=== PATIENT | female | born 1940 | race Caucasian/White ===

== ENCOUNTER 2020-10-25 13:20 | Outpatient (REF) | payer MEDICARE, SELFPAY | END 2020-10-25 13:21 | disposition home or self-care (01) | LOC: HO.HOSX 13:20 | PROVIDERS: Visit Provider Orthopaedic Surgery | DX: Z13.89 Encounter for screening for other disorder (principal) ==

== ENCOUNTER → 2021-01-07 09:05 | Outpatient (BNVA) | payer MEDICARE, SELFPAY | PROVIDERS: PCP Internal Medicine; Visit Provider Surgery | DX: C50.911 Malignant neoplasm of unspecified site of right female breast (principal) | CPT/HCPCS: 99212 ==

== ENCOUNTER → 2021-02-20 08:35 | Outpatient (BNVA) | payer MEDICARE, SELFPAY | PROVIDERS: Visit Provider Orthopaedic Surgery | DX: M17.0 Bilateral primary osteoarthritis of knee (principal) | CPT/HCPCS: 20610; 99212; J1100 ==

== ENCOUNTER 2021-05-01 13:22 | Outpatient (REF) | payer MEDICARE, SELFPAY ==
--- NOTE | ~2021-05-01 | MM_ITS ---
EXAMINATION: MM DIAGNOSTIC DIGITAL BREAST TOMOSYNTHESIS, BILATERAL CLINICAL INFORMATION: Right lumpectomy for invasive ductal cancer 04/15/2018. Original biopsy and workup performed at outside facility. Due for yearly. COMPARISON: Mammography: 05/02/2020, 04/25/2019, right breast localization 04/15/2018. TECHNIQUE: Digital breast tomosynthesis is performed in both the craniocaudal and mediolateral oblique views along with computer-aided detection (CAD). Synthesized 2D images are generated from the tomosynthesis. Additional views are provided: Right MLO, magnification right CC, magnification right ML x2. FINDINGS: There are scattered areas of fibroglandular density (ACR BI-RADS breast composition Category b). Breast tissue composition borders on heterogeneously dense. Mild motion artifact right CC view. Parenchyma unremarkable on additional magnification view. Post therapy changes right breast with mild reduced breast size and scarring are again noted. There are stable fine calcifications central right breast as well as coarse and vascular calcifications. The bilateral axilla are unremarkable. The left breast has subtle focal asymmetric density mid 8:00 position approximately 7 cm from nipple, not appreciated at time of imaging. Patient will be recalled for additional evaluation. The remainder of the left breast is stable with similar appearing parenchyma and stable fine calcifications, coarse and vascular calcifications as before. Preliminary results provided to patient at time of visit by the technologist. MM/MM tomosynthesis diagnostic BI IMPRESSION: 1. Left: Subtle focal asymmetric density mid o'clock position approximately 7 cm from nipple. 2. Right: Stable post therapy changes. ASSESSMENT: BI-RADS 0: Incomplete - Need Additional Imaging Evaluation RECOMMENDATION: 1. Additional views left breast (3-D spot CC, 3-D spot LM). Include repeat right CC. 2. Targeted ultrasound left breast as warranted after review of the additional images. This patient's information was entered into a reminder system with a target due date for their next mammogram.
== END 2021-05-01 13:23 | disposition home or self-care (01) ==
LOC: HO.MAMMO 13:22
PROVIDERS: Absent Provider Surgery; PCP Internal Medicine; Visit Provider Internal Medicine Medical Oncology
DX: Z85.3 Personal history of malignant neoplasm of breast (principal)
CPT/HCPCS: 77062; 77066

== ENCOUNTER → 2021-05-08 08:07 | Outpatient (BNV) | payer MEDICARE, SELFPAY | PROVIDERS: PCP Internal Medicine; Visit Provider Internal Medicine Medical Oncology | DX: C50.911 Malignant neoplasm of unspecified site of right female breast (principal) | CPT/HCPCS: 99212; 99213; 99214 ==

== ENCOUNTER 2021-05-08 09:05 | Outpatient (REF) | payer MEDICARE, SELFPAY ==
--- NOTE | ~2021-05-08 | US_ITS ---
EXAMINATION: US DIAGNOSTIC ULTRASOUND BREAST, LEFT CLINICAL INFORMATION: Recall from recent bilateral diagnostic mammography 05/01/2021. Subtle asymmetric density lower inner left breast and motion artifact on right CC. Prior history right lumpectomy for breast cancer 2018. COMPARISON: Mammography 05/01/2021, 05/02/2020. TECHNIQUE: Digital breast tomosynthesis is performed. 2D images are generated from the tomosynthesis. The following views are obtained: Right CC (technical recall). 3-D spot left CC and 3-D spot left LM. Ultrasound left breast is targeted to the lower inner quadrant using grayscale imaging and color Doppler without and with harmonics. FINDINGS: Mammography: There are scattered areas of fibroglandular density (ACR BI-RADS breast composition Category b). Additional right CC view shows no additional findings. Additional left CC and LM spot views confirm small focal asymmetric density lower inner breast mid depth approximately 6 x 4 mm with ill-defined margins. This represents new finding from prior mammography 2019. Ultrasound left breast demonstrates subtle inhomogeneous hypoechoic lesion 8:00 position 5 cm from nipple measuring approximately 6 x 5 x 4 mm. No posterior sound characteristics. There is questionable associated color flow. No other cystic or solid mass or architectural abnormality. Results are discussed with the patient at time of visit. The finding on ultrasound left breast may correspond to the new focal asymmetric density on mammography. Since prone stereotactic biopsy would be difficult, attempt at ultrasound-guided biopsy was discussed. Patient is in agreement to proceed with ultrasound guided biopsy and reassess concordance with mammography following clip placement. US/US breast LT limited IMPRESSION: New small focal asymmetric density lower inner left breast mid depth with ill-defined margins. Possible ultrasound correlate. ASSESSMENT: BI-RADS 4: Suspicious RECOMMENDATION: Ultrasound-guided core biopsy left breast. Assess for mammographic concordance after clip placement at time of visit.
== END 2021-05-08 09:06 | disposition home or self-care (01) ==
LOC: HO.MAMMO 09:05
PROVIDERS: Visit Provider Surgery
DX: R92.8 Other abnormal and inconclusive findings on diagnostic imaging of breast (principal)
CPT/HCPCS: 76642

== ENCOUNTER 2021-05-09 09:58 | Outpatient (REF) | payer MEDICARE, SELFPAY ==
--- NOTE | ~2021-05-09 | MM_ITS ---
EXAMINATION: ULTRASOUND GUIDED CORE BIOPSY BREAST, LEFT POST PROCEDURE DIGITAL MAMMOGRAM, LEFT CLINICAL INFORMATION: New small focal asymmetric density lower inner left breast mid depth with possible ultrasound correlate. Prior history contralateral right breast invasive ductal cancer status post lumpectomy 2017. COMPARISON: Mammography 05/01/2021, 05/02/2020, targeted ultrasound 05/08/2021. FINDINGS: Proper informed consent is obtained from the patient after discussion of the procedure, potential risks and complications, and alternatives. Patient was given an opportunity for questions. The patient appeared to understand. The patient consented to the procedure and signed the consent form. GUIDANCE: Ultrasound-guided; aseptic technique. LESION: Inhomogeneous hypoechoic lesion 8:00 position left breast under 1 cm. No posterior shadowing or acoustic enhancement. APPROACH: Mediolateral. ANESTHESIA: 8 mL 1% lidocaine. DERMATOTOMY: Single skin álvaro dermatotomy performed. NEEDLE: 14-gauge Achieve core biopsy device with 13.5-gauge co-axial guide needle. CORES: 5. CLIP: HydroMARK; shape: butterfly. POST PROCEDURE UNILATERAL DIGITAL MAMMOGRAM: The post biopsy mammogram is performed in separate room using separate digital mammography equipment from the biopsy procedure. CC and ML views are obtained. There are scattered areas of fibroglandular density (breast composition category: b). The clip marker resides in the expected vicinity of the recent mammographic finding. The mammographic lesion is not seen with certainty due to background opacities from the anesthesia and tissue sampling. The patient tolerated the procedure well. No immediate complications. Home instructions reviewed with the patient. Final pathology results are pending. MM/MM diagnostic mammo unilat LT IMPRESSION: 1. Status post ultrasound-guided core biopsy left breast. 2. Clip placed: Ultraclip; shape: butterfly. 3. Pathology pending. An addendum report will be issued.
== END 2021-05-09 09:59 | disposition home or self-care (01) ==
LOC: HO.MAMMO 09:58
PROVIDERS: Visit Provider Surgery
DX: C50.312 Malignant neoplasm of lower-inner quadrant of left female breast (principal); Z17.0 Estrogen receptor positive status [ER+]
CPT/HCPCS: 19083; 77065; 88305; 88341; 88342; 88360

== ENCOUNTER 2021-06-04 07:51 | Inpatient (IN) | payer MEDICARE, SELFPAY ==
[2021-05-28 14:13] VITALS: BMI 32.9
--- NOTE | 2021-06-02 13:53 | PM.EVENT ---
Event Note Date of Service: 05/14/21 Event Note: I reviewed the pathology report with the patient by telephone and the patient expressed understanding.? She expressed her wish to undergo a bilateral mastectomy should the pathology be positive for breast cancer.? I offered to have her come to the office to discuss the options further but she declined and is very certain of how she wishes to proceed.? We discussed the surgery further including the risks, alternatives and benefits in detail and she gives her consent for the left modified radical mastectomy and right simple mastectomy.? She will be scheduled as a short stay admit.?
--- NOTE | 2021-06-03 11:53 | P.CONAN_ITS ---
Documented by User: Jaimie Golden NP 06/03/21 11:56 HPI - Anesthesia Eval Consult details Narrative: 81yo F for Left Modified Radical Mastectomy & Right Simple Mastectomy *Multiple Med Allergies* PMFSH Active Problems Active Problems: All Active Problems (Updated 05/28/21 @ 14:13 by Doreen Simmons) Hip strain (Acute) Invasive ductal carcinoma of right breast (Acute) Abnormal mammogram (Acute) Invasive ductal carcinoma of breast, female (Acute 05/13/21) Past Medical History Medical History Breast cancer COVID-19 vaccine series completed Depression GERD (gastroesophageal reflux disease) HX: breast cancer Hypothyroid Vertigo Family History Family History Father No problems noted. Mother No problems noted. Surgical History Surgical History H/O colonoscopy History of biopsy History of laparoscopic cholecystectomy History of lumpectomy of right breast (03/2018) History of surgery History of tonsillectomy and adenoidectomy History of tooth extraction Social History Social History Are you a primary day care worker to a significant other at home: No Do you presently have visiting nurse or other home services: No Alcohol intake: never Patient Tobacco Use Status: Former Tobacco user Quit Date: 1980 Tobacco use type: Cigarette Use of substances other than those prescribed or required for medical reasons: No Have you been hit, kicked, punched, or otherwise hurt by someone within the past year? If so, by whom?: No Are you DNR?: No Advance Directives: No Advance Directives Information Provided: Yes (does not have HCP) Advance Directives on File: No Recently lost weight without trying: No Eating poorly because of decreased appetite: No Nutrition Risks: Surgical patient >75years Poor oral hygiene: No (upper & lower full denture) Current occupational status: retired Gender identity: female Meds Allergies Allergy/AdvReac Type Severity Reaction Status Date / Time Iodinated Contrast Media Allergy Intermediate itching Verified 02/20/21 08:44 [IV CONTRAST] isopropyl alcohol Allergy Intermediate RASH/HIVES Verified 02/20/21 08:44 [ISOPROPYL ALCOHOL] latex [LATEX] Allergy Intermediate HIVES,RASH, Verified 02/20/21 08:44 ITCHY nitrofurantoin Allergy Intermediate RASH Verified 02/20/21 08:44 [From MACRODANTIN] Penicillins [PENICILLINS] Allergy Intermediate HIVES Verified 02/20/21 08:44 phenazopyridine Allergy Intermediate hives Verified 02/20/21 08:44 [From PYRIDIUM] vancomycin Allergy Itching Verified 06/04/21 09:52 ethanol Allergy Intermediate rash Uncoded 02/20/21 08:44 sulfa drugs Allergy Intermediate rash Uncoded 02/20/21 08:44 Home Medications Medication Instructions Recorded Confirmed Last Taken Type ascorbate calcium (vitamin C) 500 500 mg PO DAILY 10/25/20 05/28/21 Unknown History mg tablet levothyroxine 88 mcg tablet 88 mcg PO DAILY 10/25/20 05/28/21 Unknown History meclizine 25 mg tablet 25 mg PO TID PRN 10/25/20 05/28/21 Unknown History mecobalamin (vitamin B12) 5,000 5,000 mcg PO DAILY 10/25/20 05/28/21 Unknown History mcg disintegrating tablet omeprazole 20 mg capsule,delayed 20 mg PO DAILY 10/25/20 05/28/21 Unknown History release sertraline 25 mg tablet 25 mg PO DAILY 10/25/20 05/28/21 Unknown History Exam Exam Date and Time: June 03, 2021 1153 Height,Weight and Vital Signs: Height 5 ft 3 in Weight 84.4 kg Pertinent Lab Results Pertinent Lab Results: Laboratory Tests 05/08/21 05/08/21 08:53 08:53 WBC 5.9 Hgb 13.8 Hct 41.5 Plt Count 229 Sodium 137 Potassium 4.4 Chloride 104 Carbon Dioxide 23 BUN 20 H Creatinine 0.96 Narrative Narrative: ECHO 2018 EF 60-65% Grade 1 DD Moderate mitral annular calcification RV systolic pressue is normal No pericardial effusion Assessment and Plan Assessment Anesthesia Assessment: Chart Reviewed Documented by User: Anne Varela MD 06/04/21 10:07 [facility] Past Medical History Medical History Breast cancer COVID-19 vaccine series completed Depression GERD (gastroesophageal reflux disease) HX: breast cancer Hypothyroid Vertigo Family History Family History Father No problems noted. Mother No problems noted. Surgical History Surgical History H/O colonoscopy History of biopsy History of laparoscopic cholecystectomy History of lumpectomy of right breast (03/2018) History of surgery History of tonsillectomy and adenoidectomy History of tooth extraction History of Problems with Anesthesia: No Social History Social History Are you a primary day care worker to a significant other at home: No Do you presently have visiting nurse or other home services: No Alcohol intake: never Patient Tobacco Use Status: Former Tobacco user Quit Date: 1980 Tobacco use type: Cigarette Use of substances other than those prescribed or required for medical reasons: No Have you been hit, kicked, punched, or otherwise hurt by someone within the past year? If so, by whom?: No Are you DNR?: No Advance Directives: No Advance Directives Information Provided: Yes (does not have HCP) Advance Directives on File: No Recently lost weight without trying: No Eating poorly because of decreased appetite: No Nutrition Risks: Surgical patient >75years Poor oral hygiene: No (upper & lower full denture) Current occupational status: retired Gender identity: female Meds Allergies Allergy/AdvReac Type Severity Reaction Status Date / Time Iodinated Contrast Media Allergy Intermediate itching Verified 02/20/21 08:44 [IV CONTRAST] isopropyl alcohol Allergy Intermediate RASH/HIVES Verified 02/20/21 08:44 [ISOPROPYL ALCOHOL] latex [LATEX] Allergy Intermediate HIVES,RASH, Verified 02/20/21 08:44 ITCHY nitrofurantoin Allergy Intermediate RASH Verified 02/20/21 08:44 [From MACRODANTIN] Penicillins [PENICILLINS] Allergy Intermediate HIVES Verified 02/20/21 08:44 phenazopyridine Allergy Intermediate hives Verified 02/20/21 08:44 [From PYRIDIUM] vancomycin Allergy Itching Verified 06/04/21 09:52 ethanol Allergy Intermediate rash Uncoded 02/20/21 08:44 sulfa drugs Allergy Intermediate rash Uncoded 02/20/21 08:44 Home Medications Medication Instructions Recorded Confirmed Last Taken Type ascorbate calcium (vitamin C) 500 500 mg PO DAILY 10/25/20 05/28/21 Unknown History mg tablet levothyroxine 88 mcg tablet 88 mcg PO DAILY 10/25/20 05/28/21 Unknown History meclizine 25 mg tablet 25 mg PO TID PRN 10/25/20 05/28/21 Unknown History mecobalamin (vitamin B12) 5,000 5,000 mcg PO DAILY 10/25/20 05/28/21 Unknown History mcg disintegrating tablet omeprazole 20 mg capsule,delayed 20 mg PO DAILY 10/25/20 05/28/21 Unknown History release sertraline 25 mg tablet 25 mg PO DAILY 10/25/20 05/28/21 Unknown History Exam Airway Mallampati Class: II TM Dist: >3cm Neck ROM: Full Denture: Upper and Lower Loose/Missing/Broken Teeth: Yes, Upper and Lower Heart: RRR Lungs: CTA Assessment and Plan Assessment Anesthesia Assessment: Anesthesia Plan Discussed Final Anesthetic Review History of Problems with Anesthesia: No NPO: Yes ASA Class: II Final Preanesthetic Review: Meds/Allgs Chart Reviewed, Consent Obtained/Reviewed and Anes Risks/Benef Reviewed Patient Risk: Low Procedure Risk: Low Anesthetic Plan Anesthetic Plan: GA Disposition: Standard PACU
[2021-06-04] VITALS (14 sets, daily range): BP systolic 119–178; BP diastolic 62–86; PULSE 78–105; RESP 16–19; TEMP 36.1–36.6; O2SAT 90–99
[2021-06-04 08:38] LABS: COVID-19 Test Negative (Negative)
[2021-06-04] MEDS: Lactated Ringers 1,000 ML 100 ML IVCONT (08:47)
--- NOTE | 2021-06-04 08:50 | PC.NURSE ---
called pharmacy to verify vancomycin dose prior to infusing.
[2021-06-04] MEDS: vancomycin HCL 1,500 MG in 0.9 % Sodium Chloride 500 ML 333.33 MG IV (09:08)
--- NOTE | 2021-06-04 09:45 | PC.NURSE ---
PATIENTS VANCOMYCIN WAS STARTED AT 0908AM AND AT 0943 STARTED TO HAVE SCALP ITCH. NO SOB OR RESP DISTRESS NO RASH NOTED TO CHEST, NO REDNESS, NO ITCHY THROAT, VANCOMYCIN WAS STOPPED AT 0943. MD HIGGINBOTHAM BY BEDSIDE. NO NEW ORDERS. REMAINS OFF.
--- NOTE | 2021-06-04 09:50 | PC.NURSE ---
ONCE THE VANCOMYCIN HAS STOPPED THE ITCHY SCALP HAS SUBSIDED. CORTEXT TO MD MARTINI.
--- NOTE | 2021-06-04 10:24 | MHC.SHP ---
Pre-Procedural Eval Section A Date of Service: 06/04/21 The patient is an INPATIENT: No Changes since office visit: Yes Patient answered all questions; No Cold of Flu in the past 2 weeks, No New Medical Problems and No Changes in Medication The History & Physical has been completed within 30 days and I have reviewed it.: Yes Section B Chief Complaint: Bilateral mastectomy Allergies: Allergies Allergy/AdvReac Type Severity Reaction Status Date / Time Iodinated Contrast Media Allergy Intermediate itching Verified 02/20/21 08:44 [IV CONTRAST] isopropyl alcohol Allergy Intermediate RASH/HIVES Verified 02/20/21 08:44 [ISOPROPYL ALCOHOL] latex [LATEX] Allergy Intermediate HIVES,RASH, Verified 02/20/21 08:44 ITCHY nitrofurantoin Allergy Intermediate RASH Verified 02/20/21 08:44 [From MACRODANTIN] Penicillins [PENICILLINS] Allergy Intermediate HIVES Verified 02/20/21 08:44 phenazopyridine Allergy Intermediate hives Verified 02/20/21 08:44 [From PYRIDIUM] vancomycin Allergy Itching Verified 06/04/21 09:52 ethanol Allergy Intermediate rash Uncoded 02/20/21 08:44 sulfa drugs Allergy Intermediate rash Uncoded 02/20/21 08:44 Plan Diagnosis/Plan: Unchanged I have reviewed the history and physical and performed a pertinent physical examination on my patient. No changes have occurred unless specified.
--- NOTE | 2021-06-04 14:30 | P.OP_ITS ---
Operative Note Operative Note Date of Service: 06/04/21 Narrative: Preoperative diagnosis: Left breast invasive ductal carcinoma, previous right breast invasive ductal carcinoma Postoperative diagnosis: Same Procedure: Left modified radical mastectomy, right simple mastectomy Surgeon: Javier Angel MD [employer] Dispatcher: Eveline Monson PA-C Anesthesia: General LMA Indications for procedure: 81-year-old female with a previous history of a right breast invasive ductal carcinoma now presenting with a newly diagnosed left breast invasive ductal carcinoma. Patient was presented with the option of lumpectomy with needle localization, sentinel node biopsy but has requested a bilateral mastectomy. She presents now for a left modified radical mastectomy and right simple mastectomy. She previously underwent a right breast lumpectomy with right sentinel node biopsy. Operative findings: No obvious tumor noted in either breast. No obvious enlarged lymph nodes in the left axilla. Specimen: Left breast and axillary node dissection, right breast Estimated blood loss: 50 mL Complications: None Procedure details: Patient was brought to the OR and placed in a supine position. After administering general anesthesia the patient's bilateral breasts were prepped with ChloraPrep and draped in a sterile fashion. A surgical time-out was called the consent confirmed. Patient had started receiving vancomycin but developed an allergic reaction therefore this was sto pped during the mid infusion. No additional antibiotics were provided. This was discussed with the patient prior to surgery. Venodyne boots were in place. Local anesthesia consisting of 0.25 % Sensorcaine with epinephrine was infiltrated in the left breast. An elliptical incision was then created starting from the medial breast at the lateral surface of the sternum inguinal Lyn towards the axilla. Because of extensive redundant skin incision was continued further lateral attempt to resect some of the redundant skin. Incision was carried down into the subcutaneous tissue. Beginning in the superior flap electrocautery was used to dissect the superior skin flap to the bottom edge of the clavicle. Dissection was continued down to chest wall. The inferior flap was then cut created again using electrocautery down to the inferior mammary crease. Dissection was continued down to chest wall at this point as well. Dissection was then continued from medial to lateral off the chest wall using electrocautery. Hemostasis was assured using electrocautery and free ties of 3-0 Polysorb. Dissection was continued laterally towards the axilla. The lateral edge of the pectoralis major muscle was then identified. Dissection was continued around pectoralis major including the terrence tissue between the pectoralis major and pectoralis minor. Draws minor was also duct dissected free in the lateral surface. Dissection was continued laterally to identify the latissimus Dorsi muscle. Dissection was continued superiorly in both the pectoralis major and latissimus Dorsi muscles to reveal the inferior margin of the axillary vein. Portion of the lymphatic containing tissue below the axillary vein was left in place. Dissection was continued down just inferior to the axillary vein. Dissection of the long thoracic and thoracodorsal nerves were then performed. Dissection was continued below the pectoralis minor to retrieve the level 2 nodes as well as the level 1 nodes. The specimen was then continued inferiorly in the breast removed. Marking stitches were placed to identify the axilla. Specimen was sent to pathology for further examination. Hemostasis was again assured using electrocautery and free ties of 3-0 Polysorb suture. Attention was then directed to the right breast where again a elliptical incision was then created. Incision was carried down through the subcutaneous tissue. Superior flap a superior flap was then created using electrocautery up to the inferior edge of the clavicle. Inferior flap was then created similar fashion down to the inframammary crease. Dissection was then continued down to the pectoralis muscle. Beginning superiorly and medially the breast was dissected off the chest wall using electrocautery. Hemostasis was assured all times using electrocautery and free ties of 3-0 Polysorb suture. Dissection was continued laterally but not including the axilla. Was completely excised and sent to pathology for further examination. Marking stitches were applied. Wounds were irrigated thoroughly and suctioned dry. A single Joseph-Jessica drain was placed in the inferior skin flap on the right side in 2 Joseph-Jessica drains placed in the left breast 1 the axilla and the 2nd at the inferior skin flap. These were your to skin using 3-0 nylon suture. This was connected to bulb suction. Wounds were again checked for hemostasis. Dermis was then reapproximated using interrupted 3-0 Polysorb sutures at both incisions. Skin was then closed using skin kavya. Sterile were then applied. A breast binder was then applied. The patient tolerated the procedure well. Sponge, instrument, needle counts reported as correct. The patient was transferred to PACU in stable condition.
[2021-06-04] MEDS: fentaNYL citrate/PF 100 MCG/2 ML VIAL 25 MCG IVPUSH ×2 (15:04→15:12)
[2021-06-04] MEDS: 0.9 % Sodium Chloride Flush 3 ML SYRINGE IVFLUSH (17:22)
[2021-06-04] MEDS: Dextrose 5 % and Lactated Ring 1,000 ML 100 ML IVCONT (17:23)
[2021-06-04] MEDS: oxyCODONE HCl Immed Release 5 MG TABLET PO (18:52)
[2021-06-04] MEDS: Heparin Sodium,Porcine 5,000 UNIT/ML VIAL 5000 UNIT SUBCUT (18:53)
[2021-06-04] MEDS: NaPROXEN 250 MG TABLET PO (20:34)
[2021-06-05] VITALS (7 sets, daily range): BP systolic 123–154; BP diastolic 56–82; PULSE 77–83; RESP 16–18; TEMP 36.2–37; O2SAT 93–97
[2021-06-05] MEDS: Dextrose 5 % and Lactated Ring 1,000 ML 100 ML IVCONT (03:46)
[2021-06-05] MEDS: Heparin Sodium,Porcine 5,000 UNIT/ML VIAL 5000 UNIT SUBCUT ×2 (05:26→16:11)
[2021-06-05] MEDS: Levothyroxine Sodium 88 MCG TABLET PO (05:29)
--- NOTE | 2021-06-05 07:48 | P.PNGS_ITS ---
Subjective Subjective Date of Service: 06/05/21 Interval history: Feels well this morning, denies pain but has tightness at incisions. OOB and ambulating. Tolerating diet. Physical Exam Vital Signs: Vital Signs: Last Vital Signs Temp 97.2 F 06/05/21 03:17 Pulse 78 06/05/21 03:17 Resp 16 06/05/21 03:17 BP 127/82 06/05/21 03:17 Pulse Ox 97 06/05/21 03:17 Body Mass Index 32.9 Const: General: comfortable, no acute distress and alert Orientation/consciousness: patient oriented x3 Chest: Other: dressing c/d/i, incisions with very mild tenderness, no L axillary tenderness, MONIUQE drains with serosanguineous output, high Skin: General skin exam: no rashes or lesions noted Neuro: General: patient oriented x3 Extrem: General: Yes no clubbing, cyanosis or edema Procedures Date of Service Date of Service: 06/05/21 Progress Note: A&P Assessment and plan (1) Invasive ductal carcinoma of breast, female: Status: Acute (2) S/P mastectomy, bilateral: Status: Acute Assessment and Plan: She is doing very well post op #1 s/p left modified radical mastectomy, right simple mastectomy. Dressings c/d/i, breast binder in place. MONIQUE drains with serosanguineous output. Doing well but would benefit from one more day inpatient. Continue MONIQUE drains- dr french education today. Labs in AM. Encouraged OOB/IS use. Likely home tomorrow if remains stable. Fall Risk Details Current Medications: Current Medications Generic Name Dose Route Start Last Admin Trade Name Freq PRN Reason Stop Dose Admin Heparin Sodium (Porcine) 5,000 unit 06/04/21 16:32 06/05/21 05:26 Heparin Sodium,Porcine 5,000 Unit/Ml Vial SUBCUT 5,000 unit Q12H SUJATA Administration Dextrose/Lactated Ringer's 1,000 mls @ 100 mls/hr 06/04/21 16:32 06/05/21 03:46 D5lr IVCONT 100 mls/hr .Q10H SUJATA Administration Acetaminophen 1,000 mg in 100 mls @ 400 mls/hr 06/04/21 16:32 Ofirmev IV Q6H PRN Pain, Severe (Pain Scale 7-10) Levothyroxine Sodium 88 mcg 06/05/21 06:30 06/05/21 05:29 Levothyroxine Sodium 88 Mcg Tablet PO 88 mcg DAILY@0630 SUJATA Administration Meclizine HCl 25 mg 06/04/21 16:32 Meclizine Hcl 25 Mg Tablet PO TID PRN vertigo Morphine Sulfate 2 mg 06/04/21 16:32 Morphine Sulfate 2 Mg/Ml Cartridge IVPUSH Q3H PRN Pain, Severe (Pain Scale 7-10) Protocol Naproxen 250 mg 06/04/21 21:00 06/04/21 20:34 Naproxen 250 Mg Tablet PO 250 mg BID SUJATA Administration Omeprazole 20 mg 06/05/21 09:00 Omeprazole 20 Mg Capsule.Dr PO DAILY [facility] Ondansetron HCl 4 mg 06/04/21 16:32 Ondansetron Hcl 4 Mg/2 Ml Vial IVPUSH Q8H PRN Nausea and Vomiting Oxycodone HCl 5 mg 06/04/21 16:32 06/04/21 18:52 Oxycodone Hcl Immed Release 5 Mg Tablet PO 5 mg Q6H PRN Administration Pain, Moderate (Pain Scale 4-6 Sertraline HCl 25 mg 06/05/21 09:00 Sertraline Hcl 25 Mg Tablet PO DAILY [facility] Sodium Chloride 3 ml 06/04/21 16:32 06/05/21 00:03 0.9 % Sodium Chloride Flush 3 Ml Syringe IVFLUSH Not Given QSHIFT [facility] Zolpidem Tartrate 5 mg 06/04/21 16:32 Zolpidem Tartrate 5 Mg Tablet PO BEDTIME PRN Insomnia Time Spent With Patient Time: Total time spent is greater than 50% in coordination of care (as docu mented) at patient's floor/unit and/or counseling patient: Time with patient: 15 - 24 minutes Quality Stroke Does the patient have a stroke diagnosis?: No VTE Prior VTE?: No VTE Risk Level:: Surgical - high VTE Device Contraindication: N/A - Device Ordered VTE Drug Contraindication: N/A - Med Ordered
--- NOTE | 2021-06-05 09:19 | HO.POSTANES ---
Post Anesthesia Evaluation Post Anesthesia Evaluation Vital Signs: Vital Signs Temp Pulse Resp BP Pulse Ox 06/05/21 08:00 98.4 F 82 17 136/68 97 06/05/21 07:59 98.4 F 82 17 136/68 97 06/05/21 03:17 97.2 F 78 16 127/82 97 06/04/21 23:48 97.6 F 95 16 119/64 95 Anesthesia: General Mental Status: Awake Pain Control: Satisfactory Nausea/Vomiting: None Hydration: Adequate Anesthesia-Related Issues: No Anes. Related Issues
[2021-06-05] MEDS: Sertraline HCL 25 MG TABLET PO (09:44)
[2021-06-05] MEDS: Omeprazole 20 MG CAPSULE.DR PO (09:45)
[2021-06-05] MEDS: NaPROXEN 250 MG TABLET PO ×2 (09:45→20:58)
--- NOTE | 2021-06-05 10:16 | PC.NURSE ---
Skin assessment completed today. Patient had a double mastectomy, surgical site is stapled, dressing C/D/I. No other skin issues noted. Patient is independent and ambulatory.
--- NOTE | 2021-06-05 15:20 | MHC.CM.PN ---
CM MET WITH PT WHO REPORTS SHE LIVES ALONE AND IS INDEPENDENT WITH ALL CARE AND MOBILITY. PT REPORTS SHE DOES NOT USE DME AND DOES NOT HAVE IN HOME OR COMMUNITY SERVICES. PT HAS A HCP ON FILE SHE CONFIRMS IS ACCURATE. PTS PCP IS PRESTON MITCHELL. IMM DELIVERED CURRENT DC PLAN IS HOME WITH NO SERVICES PTS SON WILL TRANSPORT
[2021-06-05] MEDS: 0.9 % Sodium Chloride Flush 3 ML SYRINGE IVFLUSH (16:12)
[2021-06-06] VITALS: BP 137/63; PULSE 83; RESP 16; TEMP 36.6; O2SAT 93
[2021-06-06] MEDS: 0.9 % Sodium Chloride Flush 3 ML SYRINGE IVFLUSH ×2 (00:12→07:41)
[2021-06-06 03:38] VITALS: BP 124/60; PULSE 76; RESP 18; TEMP 36.4; O2SAT 94
[2021-06-06] MEDS: Heparin Sodium,Porcine 5,000 UNIT/ML VIAL 5000 UNIT SUBCUT (05:39)
[2021-06-06] MEDS: Levothyroxine Sodium 88 MCG TABLET PO (05:39)
[2021-06-06 06:27] LABS: MANUAL DIFF FLAG NO
[2021-06-06 06:37] LABS: Basophils Absolute Auto 0.1 X10*3/uL (0.0-0.2); Basophils Percent Auto 0.9 % (0-2); Eosinophils Absolute Auto 0.2 X10*3/uL (0.0-0.4); Hematocrit 35.2 % (37-47); Hemoglobin 11.6 g/dl (12.0-16.0); Imm Gran Abs Auto 0.02 X10*3/uL (0.00-0.03); Imm Gran Pct Auto 0.4 % (0.0-0.4); Lymphocytes Percent Auto 34.9 % (20-40); Mean Corpuscular Hemoglobin 29.3 pg (27.0-33.0); Mean Corpuscular Volume 88.9 fL (80-98); Mean Platelet Volume 9.3 fL (9.4-12.3); Monocytes Absolute Auto 0.4 X10*3/uL (0.1-1.2); Monocytes Percent Auto 7.7 % (2-11); Neutrophils Percent Auto 53.1 % (45-73); Platelet Count 194 X10*3/uL (160-400); Red Blood Count 3.96 X10*6/uL (4.20-5.50); Red Cell Distribution Width 14.6 % (11.0-16.0); White Blood Count 5.6 X10*3/uL (4.8-10.8)
[2021-06-06] MEDS: Omeprazole 20 MG CAPSULE.DR PO (07:41)
[2021-06-06] MEDS: NaPROXEN 250 MG TABLET PO (07:41)
[2021-06-06] MEDS: Sertraline HCL 25 MG TABLET PO (07:41)
--- NOTE | 2021-06-06 07:59 | W.MHC.F2F ---
Service Date Service Date: 06/06/21 Encounter Date of encounter: 06/06/21 Reasons for Services Signs and symptoms assessed: Vital signs, chest incisions, Joseph-Jessica drains Reason for jail: wound care (Drain management) Reason for physical therapy: home safety and mobility Overseeing Care: Javier Angel Homebound: Leaving the home is medically contraindicated at this time without the asist of a device and/or another person due th the listed conditions above and below. Reason homebound: unsteady gait / fall risk, weakness related to hospital stay and unable to drive Certification: Based on the above findings, I certify that this patient is confined to the home and needs intermittent jail care, physical therapy and/or speech therapy, or continues to need occupational therapy. The patient is under my care, and I have initiated the establishment of the plan of care. The patient will be followed by a physician who will periodically review the plan of care.
[2021-06-06 08:00] VITALS: BP 140/80; PULSE 82; RESP 18; TEMP 36.4; O2SAT 96
--- NOTE | 2021-06-06 08:15 | PM.PNGS ---
Subjective Subjective Date of Service: 06/06/21 Interval history: Feels very well today. Denies any pain. OOB and ambulating without difficulty. Physical Exam Vital Signs: Vital Signs: Last Vital Signs Temp 97.5 F 06/06/21 03:38 Pulse 76 06/06/21 03:38 Resp 18 06/06/21 03:38 BP 124/60 06/06/21 03:38 Pulse Ox 94 06/06/21 03:38 Body Mass Index 32.9 Const: General: comfortable, no acute distress and alert Orientation/consciousness: patient oriented x3 Chest: Other: b/l mastectomy incisions clean, some ecchymosis of left axilla, nontender, no erythema or drainage, MONIQUE drains with serosanguineous drainage Skin: General skin exam: no rashes or lesions noted Neuro: General: patient oriented x3 Extrem: General: Yes no clubbing, cyanosis or edema Procedures Date of Service Date of Service: 06/06/21 Progress Note: A&P Assessment and plan (1) S/P mastectomy, bilateral: Status: Acute (2) Invasive ductal carcinoma of breast, female: Status: Acute Assessment and Plan: Post op #2 s/p left modified radical mastectomy, right simple mastectomy. Incision clean, breast binder in place. MONIQUE drains with serosanguineous output, high. Continues to do well post op, pain minimal and incisions clean. Ready for discharge to home. Will need to leave MONIQUE drains in place. Discharge to home today with VNA services. PAtient comfortable with plan. Fall Risk Details Current Medications: Current Medications Generic Name Dose Route Start Last Admin Trade Name Freq PRN Reason Stop Dose Admin Heparin Sodium (Porcine) 5,000 unit 06/04/21 16:32 06/06/21 05:39 Heparin Sodium,Porcine 5,000 Unit/Ml Vial SUBCUT 5,000 unit Q12H SUJATA Administration Acetaminophen 1,000 mg in 100 mls @ 400 mls/hr 06/04/21 16:32 06/05/21 10:58 Ofirmev IV Infused Q6H PRN Infusion Pain, Severe (Pain Scale 7-10) Levothyroxine Sodium 88 mcg 06/05/21 06:30 06/06/21 05:39 Levothyroxine Sodium 88 Mcg Tablet PO 88 mcg DAILY@0630 SUJATA Administration Meclizine HCl 25 mg 06/04/21 16:32 Meclizine Hcl 25 Mg Tablet PO TID PRN vertigo Morphine Sulfate 2 mg 06/04/21 16:32 Morphine Sulfate 2 Mg/Ml Cartridge IVPUSH Q3H PRN Pain, Severe (Pain Scale 7-10) Protocol Naproxen 250 mg 06/04/21 21:00 06/06/21 07:41 Naproxen 250 Mg Tablet PO 250 mg BID SUJATA Administration Omeprazole 20 mg 06/05/21 09:00 06/06/21 07:41 Omeprazole 20 Mg Capsule.Dr PO 20 mg DAILY SUJATA Administration Ondansetron HCl 4 mg 06/04/21 16:32 Ondansetron Hcl 4 Mg/2 Ml Vial IVPUSH Q8H PRN Nausea and Vomiting Oxycodone HCl 5 mg 06/04/21 16:32 06/04/21 18:52 Oxycodone Hcl Immed Release 5 Mg Tablet PO 5 mg Q6H PRN Administration Pain, Moderate (Pain Scale 4-6 Sertraline HCl 25 mg 06/05/21 09:00 06/06/21 07:41 Sertraline Hcl 25 Mg Tablet PO 25 mg DAILY SUJATA Administration Sodium Chloride 3 ml 06/04/21 16:32 06/06/21 07:41 0.9 % Sodium Chloride Flush 3 Ml Syringe IVFLUSH 3 ml QSHIFT SUJATA Administration Zolpidem Tartrate 5 mg 06/04/21 16:32 Zolpidem Tartrate 5 Mg Tablet PO BEDTIME PRN Insomnia Time Spent With Patient Time: Total time spent is greater than 50% in coordination of care (as documented) at patient's floor/unit and/or counseling patient: Time with patient: 25 - 35 minutes Quality Stroke Does the patient have a stroke diagnosis?: No VTE Prior VTE?: No VTE Risk Level:: Surgical - high VTE Device Contraindication: N/A - Device Ordered VTE Drug Contraindication: N/A - Med Ordered
--- NOTE | 2021-06-06 08:20 | MHC.CM.PN ---
PATIENT AWARE THAT SURGEON IS RECOMMENDING HOME WITH VNA SERVICES. [facility] REFERRAL PLACED PER REQUEST OF PATIENT. CASE MANAGEMENT FOLLOWING.
--- NOTE | 2021-06-06 08:33 | MHC.CM.PN ---
[facility] IS UNABLE TO VISIT PATIENT UNTIL WEDNESDAY. RN FEELS THIS IS ACCEPTABLE. PATIENT AWARE.
--- NOTE | 2021-06-09 13:53 | PM.DS ---
DS: Providers Provider Date of Service: 06/06/21 Date of admission: 06/04/21 07:51 Primary care physician: Chemo Matias MD DS: Diagnosis Discharge Diagnosis (1) S/P mastectomy, bilateral: Status: Acute (2) Invasive ductal carcinoma of breast, female: Status: Acute DS: Medications Discharge Medications Home Medications: Home Medications Medication Instructions Recorded Confirmed ascorbate calcium (vitamin C) 500 500 mg PO DAILY 10/25/20 05/28/21 mg tablet levothyroxine 88 mcg tablet 88 mcg PO DAILY 10/25/20 05/28/21 meclizine 25 mg tablet 25 mg PO TID PRN 10/25/20 05/28/21 mecobalamin (vitamin B12) 5,000 5,000 mcg PO DAILY 10/25/20 05/28/21 mcg disintegrating tablet omeprazole 20 mg capsule,delayed 20 mg PO DAILY 10/25/20 05/28/21 release sertraline 25 mg tablet 25 mg PO DAILY 10/25/20 05/28/21 Previous Rx's Medication Instructions Recorded meloxicam 7.5 mg tablet 7.5 mg PO DAILY 14 Days #14 tab 10/25/20 oxycodone 5 mg tablet 5 mg PO Q6H PRN #10 tab 06/06/21 DS: Summary Hospital Course Hospital Course: BRIEF HPI: 81-year-old female with a previous history of a right breast invasive ductal carcinoma now presenting with a newly diagnosed left breast invasive ductal carcinoma. Patient was presented with the option of lumpectomy with needle localization, sentinel node biopsy but has requested a bilateral mastectomy. She presents now for a left modified radical mastectomy and right simple mastectomy. She previously underwent a right breast lumpectomy with right sentinel node biopsy. HOSPITAL COURSE: On 06/04/21, left modified radical mastectomy, right simple mastectomy was performed by Dr. Angel without complication. The patient tolerated the procedure well and was admitted for observation following. The patient had an uncomplicated recovery course and did very well. On POD #1, she had minimal incisional pain. She was tolerating a solid diet and OOB without difficulty. Her dressings were c/d/i but MONIQUE drains had a large amount of serosanguineous drainage and were left in place. She continued to do well on POD #2. Her incisions we clean, dressings changed and MONIQUE drains were left in place for persistent moderate output. She felt ready for discharge to home. She was discharged to home on 06/06/21 in stable condition with VNA services and her MONIQUE drains in place. Status at Discharge Functional status at discharge: independent ambulation Overall status at discharge: patient is progressing back to baseline Time Spent with Patient Time attestation: Total time spent providing and/or coordinating discharge services: Discharge coordination time: Greater than 30 minutes Quality: Stroke Does the patient have a stroke diagnosis?: No Physical Exam Vital Signs: Vital Signs: Last Vital Signs Temp 97.5 F 06/06/21 08:00 Pulse 82 06/06/21 08:00 Resp 18 06/06/21 08:00 BP 140/80 H 06/06/21 08:00 Pulse Ox 96 06/06/21 08:00 Body Mass Index 32.9 Const: General: comfortable, no acute distress and alert Orientation/consciousness: patient oriented x3 Chest: Other: b/l mastectomy site incisions clean, MONIQUE drains in place Resp: Effort & Inspection: normal respiratory effort Cardio: Rate: regular rate Skin: General skin exam: no rashes or lesions noted Neuro: General: patient oriented x3 DS: Data Data Completed and Pending Pending studies at discharge: Pending at discharge 06/04/21 13:01 Surgical [PTH] Routine Discharge Plan Discharge Patient Disposition: Home Health Service Discharge Diagnosis: invasive ductal carcinoma left breast Referrals: Krysten YAO [Outside] - 1 Week Javier Angel MD [Physician] - 1 Week Chemo Matias MD [Primary Care Provider] - 1 Week Discharge Medications: New oxycodone 5 mg tablet 5 mg PO Q6H PRN (Reason: pain) Qty: 10 RF: 0 Continued omeprazole 20 mg capsule,delayed release(DR/EC) 20 mg PO DAILY RF: 0 meclizine 25 mg tablet 25 mg PO TID PRN (Reason: vertigo) RF: 0 levothyroxine 88 mcg tablet 88 mcg PO DAILY RF: 0 sertraline 25 mg tablet 25 mg PO DAILY RF: 0 ascorbate calcium (vitamin C) 500 mg tablet 500 mg PO DAILY RF: 0 mecobalamin (vitamin B12) 5,000 mcg tablet,disintegrating 5,000 mcg PO DAILY RF: 0 meloxicam 7.5 mg tablet 7.5 mg PO DAILY 14 Days Qty: 14 RF: 0 Discharge Orders: Discharge Order (Routine); Ordered 06/06/21 Ordered By: Javier Angel Diet: advance to usual diet Activity on Discharge: No heavy lifting Stand Alone Forms: Patient Portal Discharge page Care Plan Goals: Gradual return to activities following recovery period, eventual MONIQUE drain removal Health Concerns: Invasive ductal carcinoma left breast s/p left modified radical and right simple mastectomy Plan of Treatment: Discharge to home with vna services, f/u in office, MONIQUE drain care Assessment: 81 year old female admitted s/p s/p left modified radical and right simple mastectomy. She is doing very well post op and is stable for discharge to home with VNA services. Discharge Date/Time: 06/06/21 10:38
== END 2021-06-06 10:38 | disposition home health service (06) | DRG 581 ==
LOC: HO.SSSA 07:54 → HO.S3 15:39
PROVIDERS: Physician Assistant Surgical; Admitting Provider Surgery; PCP Internal Medicine; Visit Provider Surgery
PROC: 07B60ZX Excision of Left Axillary Lymphatic, Open Approach, Diagnostic (ICD-10-PCS; CPT 19307; principal; 2021-06-04 09:40)
DX: D05.12 Intraductal carcinoma in situ of left breast (principal); D05.11 Intraductal carcinoma in situ of right breast; K21.9 Gastro-esophageal reflux disease without esophagitis; Z20.822 Contact with and (suspected) exposure to COVID-19; Z87.891 Personal history of nicotine dependence; Z88.0 Allergy status to penicillin; Z88.2 Allergy status to sulfonamides; Z79.1 Long term (current) use of non-steroidal anti-inflammatories (NSAID); Z79.890 Hormone replacement therapy; Z79.899 Other long term (current) drug therapy
CPT/HCPCS: 36415; 85025; 87635; 88307; 88309; 88360; J0131; J1100; J2250; J2370; J2405; J3010; J3370

== ENCOUNTER → 2021-06-10 11:27 | Outpatient (BNVA) | payer MEDICARE, SELFPAY | PROVIDERS: PCP Internal Medicine; Referring Provider Internal Medicine; Visit Provider Surgery | DX: Z48.3 Aftercare following surgery for neoplasm (principal); C50.919 Malignant neoplasm of unspecified site of unspecified female breast; Z90.13 Acquired absence of bilateral breasts and nipples | CPT/HCPCS: 99212 ==

== ENCOUNTER → 2021-06-17 09:31 | Outpatient (BNVA) | payer MEDICARE, SELFPAY | PROVIDERS: PCP Internal Medicine; Referring Provider Internal Medicine; Visit Provider Surgery | DX: Z48.89 Encounter for other specified surgical aftercare (principal); Z90.13 Acquired absence of bilateral breasts and nipples; Z85.3 Personal history of malignant neoplasm of breast | CPT/HCPCS: 99212 ==

== ENCOUNTER → 2021-06-25 14:36 | Outpatient (BNVA) | payer MEDICARE, SELFPAY | PROVIDERS: PCP Internal Medicine; Referring Provider Internal Medicine; Visit Provider Surgery | DX: C50.911 Malignant neoplasm of unspecified site of right female breast (principal); L76.34 Postprocedural seroma of skin and subcutaneous tissue following other procedure | CPT/HCPCS: 99212 ==

== ENCOUNTER → 2021-07-01 09:24 | Outpatient (BNVA) | payer MEDICARE, SELFPAY | PROVIDERS: PCP Internal Medicine; Visit Provider Surgery | DX: L76.34 Postprocedural seroma of skin and subcutaneous tissue following other procedure (principal) | CPT/HCPCS: 99212 ==

== ENCOUNTER → 2021-07-08 09:26 | Outpatient (BNVA) | payer MEDICARE, SELFPAY | PROVIDERS: PCP Internal Medicine; Referring Provider Internal Medicine; Visit Provider Surgery | DX: L76.34 Postprocedural seroma of skin and subcutaneous tissue following other procedure (principal) | CPT/HCPCS: 99212 ==

== ENCOUNTER → 2021-07-11 10:03 | Outpatient (BNVA) | payer MEDICARE, SELFPAY | PROVIDERS: PCP Internal Medicine; Visit Provider Surgery | DX: L76.34 Postprocedural seroma of skin and subcutaneous tissue following other procedure (principal) | CPT/HCPCS: 10160; 99212 ==

== ENCOUNTER → 2021-07-15 08:53 | Outpatient (BNVA) | payer MEDICARE, SELFPAY | PROVIDERS: PCP Internal Medicine; Referring Provider Internal Medicine; Visit Provider Surgery | DX: L76.34 Postprocedural seroma of skin and subcutaneous tissue following other procedure (principal); C50.911 Malignant neoplasm of unspecified site of right female breast; Z90.13 Acquired absence of bilateral breasts and nipples | CPT/HCPCS: 10160; 99212 ==

== ENCOUNTER → 2021-07-22 08:48 | Outpatient (BNVA) | payer MEDICARE, SELFPAY | PROVIDERS: PCP Internal Medicine; Referring Provider Internal Medicine; Visit Provider Surgery | DX: C50.919 Malignant neoplasm of unspecified site of unspecified female breast (principal) | CPT/HCPCS: 99212 ==

== ENCOUNTER → 2021-08-22 09:02 | Outpatient (BNVA) | payer MEDICARE, SELFPAY | PROVIDERS: PCP Internal Medicine; Referring Provider Internal Medicine; Visit Provider Surgery | DX: C50.911 Malignant neoplasm of unspecified site of right female breast (principal) | CPT/HCPCS: 99212 ==

== ENCOUNTER → 2021-12-30 09:02 | Outpatient (BNVA) | payer MEDICARE, SELFPAY | PROVIDERS: Referring Provider Internal Medicine; Visit Provider Surgery | DX: C50.911 Malignant neoplasm of unspecified site of right female breast (principal) | CPT/HCPCS: 99212 ==

== ENCOUNTER → 2022-01-27 10:59 | Outpatient (BNVA) | payer MEDICARE, SELFPAY | PROVIDERS: PCP Internal Medicine; Referring Provider Internal Medicine; Visit Provider Physician Assistant | DX: R19.5 Other fecal abnormalities (principal) | CPT/HCPCS: 99202 ==

== ENCOUNTER 2022-01-30 09:24 | Outpatient (REF) | payer MEDICARE, SELFPAY ==
[2022-01-30 14:09] LABS: CDiff Gene PCR NEGATIVE (Negative)
== END 2022-01-30 09:25 | disposition home or self-care (01) ==
LOC: HO.WFDLNP 09:24
PROVIDERS: Visit Provider Physician Assistant
DX: R19.7 Diarrhea, unspecified (principal)
CPT/HCPCS: 87045; 87046; 87077; 87493

== ENCOUNTER → 2022-02-10 09:26 | Outpatient (BNVA) | payer MEDICARE, SELFPAY | PROVIDERS: PCP Internal Medicine; Visit Provider Physician Assistant | DX: Z13.89 Encounter for screening for other disorder (principal) | CPT/HCPCS: Q3014 ==

== ENCOUNTER → 2022-02-27 09:59 | Outpatient (BNVA) | payer MEDICARE, SELFPAY | PROVIDERS: PCP Internal Medicine; Visit Provider Orthopaedic Surgery | DX: M17.0 Bilateral primary osteoarthritis of knee (principal) | CPT/HCPCS: 20610; 99212; J1100 ==

== ENCOUNTER → 2022-03-17 10:30 | Outpatient (BNVA) | payer MEDICARE, SELFPAY | PROVIDERS: PCP Internal Medicine; Visit Provider Physician Assistant | DX: R19.5 Other fecal abnormalities (principal) | CPT/HCPCS: 99212 ==

== ENCOUNTER → 2022-04-23 09:44 | Outpatient (BNVA) | payer MEDICARE, SELFPAY | PROVIDERS: PCP Internal Medicine; Visit Provider Orthopaedic Surgery | DX: M17.0 Bilateral primary osteoarthritis of knee (principal) | CPT/HCPCS: 20610; 99212; J7323 ==

== ENCOUNTER → 2022-04-30 09:07 | Outpatient (BNVA) | payer MEDICARE, SELFPAY | PROVIDERS: PCP Internal Medicine; Visit Provider Orthopaedic Surgery | DX: M17.0 Bilateral primary osteoarthritis of knee (principal) | CPT/HCPCS: 20610; 99212; J7323 ==

== ENCOUNTER → 2022-05-07 09:10 | Outpatient (BNVA) | payer MEDICARE, SELFPAY | PROVIDERS: PCP Internal Medicine; Visit Provider Physician Assistant | DX: M17.0 Bilateral primary osteoarthritis of knee (principal) | CPT/HCPCS: 20610; 99212; J7323 ==

== ENCOUNTER → 2022-05-14 09:32 | Outpatient (BNVA) | payer MEDICARE, SELFPAY | PROVIDERS: PCP Internal Medicine; Visit Provider Physician Assistant | DX: M17.11 Unilateral primary osteoarthritis, right knee (principal) | CPT/HCPCS: 20610; J7323 ==

== ENCOUNTER → 2022-07-31 11:14 | Outpatient (BNVA) | payer MEDICARE, SELFPAY | PROVIDERS: PCP Internal Medicine; Visit Provider Surgery | DX: C50.911 Malignant neoplasm of unspecified site of right female breast (principal); C50.912 Malignant neoplasm of unspecified site of left female breast; Z90.13 Acquired absence of bilateral breasts and nipples | CPT/HCPCS: 99212 ==

== ENCOUNTER → 2022-09-18 09:38 | Outpatient (BNVA) | payer MEDICARE, SELFPAY | PROVIDERS: PCP Internal Medicine; Visit Provider Physician Assistant | DX: M17.0 Bilateral primary osteoarthritis of knee (principal); M25.561 Pain in right knee; M25.562 Pain in left knee | CPT/HCPCS: 20610; 99212; J1040 ==

== ENCOUNTER → 2022-11-06 09:41 | Outpatient (BNVA) | payer MEDICARE, SELFPAY | PROVIDERS: PCP Internal Medicine; Visit Provider Physician Assistant | DX: M17.0 Bilateral primary osteoarthritis of knee (principal) | CPT/HCPCS: 20610; J7323 ==

== ENCOUNTER → 2022-11-13 09:22 | Outpatient (BNVA) | payer MEDICARE, SELFPAY | PROVIDERS: PCP Internal Medicine; Visit Provider Physician Assistant | DX: M17.0 Bilateral primary osteoarthritis of knee (principal) | CPT/HCPCS: 20610; J7323 ==

== ENCOUNTER → 2022-11-20 10:49 | Outpatient (BNVA) | payer MEDICARE, SELFPAY | PROVIDERS: PCP Internal Medicine; Visit Provider Physician Assistant | DX: M17.0 Bilateral primary osteoarthritis of knee (principal) | CPT/HCPCS: 20610; J7323 ==

== ENCOUNTER 2023-01-29 07:57 | Outpatient (REF) | payer MEDICARE, SELFPAY ==
--- NOTE | ~2023-01-29 | XR_ITS ---
X-RAY RIGHT KNEE X-RAY LEFT KNEE X-RAY BILATERAL STANDING KNEES CLINICAL HISTORY: Pain. COMPARISON: Radiograph of the left knee 09/01/2019. TECHNIQUE: 1view of the right knee. 2 views of the left knee. 1 AP standing view of both knees. FINDINGS: No acute fractures. No subluxation. Moderate tricompartmental degenerative osteoarthritis in both knees with joint space narrowing, subcortical sclerosis and small marginal osteophytes. Small left-sided joint effusion. Scattered bilateral atherosclerotic disease. XR/XR knee LT 2V IMPRESSION: 1. No acute fractures or malalignment. 2. Moderate tricompartmental degenerative osteoarthritis. 3. Small left-sided joint effusion.
--- NOTE | ~2023-01-29 | XR_ITS ---
X-RAY RIGHT KNEE X-RAY LEFT KNEE X-RAY BILATERAL STANDING KNEES CLINICAL HISTORY: Pain. COMPARISON: Radiograph of the left knee 09/01/2019. TECHNIQUE: 1view of the right knee. 2 views of the left knee. 1 AP standing view of both knees. FINDINGS: No acute fractures. No subluxation. Moderate tricompartmental degenerative osteoarthritis in both knees with joint space narrowing, subcortical sclerosis and small marginal osteophytes. Small left-sided joint effusion. Scattered bilateral atherosclerotic disease. XR/XR knee standing BI IMPRESSION: 1. No acute fractures or malalignment. 2. Moderate tricompartmental degenerative osteoarthritis. 3. Small left-sided joint effusion.
--- NOTE | ~2023-01-29 | XR_ITS ---
X-RAY RIGHT KNEE X-RAY LEFT KNEE X-RAY BILATERAL STANDING KNEES CLINICAL HISTORY: Pain. COMPARISON: Radiograph of the left knee 09/01/2019. TECHNIQUE: 1view of the right knee. 2 views of the left knee. 1 AP standing view of both knees. FINDINGS: No acute fractures. No subluxation. Moderate tricompartmental degenerative osteoarthritis in both knees with joint space narrowing, subcortical sclerosis and small marginal osteophytes. Small left-sided joint effusion. Scattered bilateral atherosclerotic disease. XR/XR knee RT 2V IMPRESSION: 1. No acute fractures or malalignment. 2. Moderate tricompartmental degenerative osteoarthritis. 3. Small left-sided joint effusion.
== END 2023-01-29 07:58 | disposition home or self-care (01) ==
LOC: HO.HOSX 07:57
PROVIDERS: Visit Provider Physician Assistant
DX: M17.0 Bilateral primary osteoarthritis of knee (principal); C50.911 Malignant neoplasm of unspecified site of right female breast; Z79.899 Other long term (current) drug therapy
CPT/HCPCS: 20610; 73560; 73565; 99212; J1040

== ENCOUNTER 2023-05-06 13:35 | Outpatient (AMB) | payer MEDICARE, SELFPAY ==
[2023-05-06 13:43] VITALS: BMI 30.8
--- NOTE | 2023-05-06 13:43 | A.OFFVIS_ITS ---
Intake Vital Signs 05/06/23 13:43 Height 5 ft 3 in Weight 174 lb BMI 30.8 Intake Visit Reasons: OV- B/L Knees INJ 01/29/23 Intake Note: Ana is a 82 year old female who presents today for a follow up for her bilateral knee OA, last injection 01/29/23. Patient reports she would like to repeat the injections and would like to discuss repeating her gel injections. Allergies Iodinated Contrast Media [IV CONTRAST] Allergy (Intermediate, Verified 05/06/23 13:44) itching isopropyl alcohol [ISOPROPYL ALCOHOL] Allergy (Intermediate, Verified 05/06/23 13:44) RASH/HIVES latex [LATEX] Allergy (Intermediate, Verified 05/06/23 13:44) HIVES,RASH,ITCHY nitrofurantoin [From MACRODANTIN] Allergy (Intermediate, Verified 05/06/23 13:44) RASH Penicillins [PENICILLINS] Allergy (Intermediate, Verified 05/06/23 13:44) HIVES phenazopyridine [From PYRIDIUM] Allergy (Intermediate, Verified 05/06/23 13:44) hives vancomycin Allergy (Verified 05/06/23 13:44) Itching ethanol Allergy (Intermediate, Uncoded 01/29/23 08:52) rash sulfa drugs Allergy (Intermediate, Uncoded 01/29/23 08:52) rash HPI OV- B/L Knees INJ 01/29/23 HPI Details 83-year-old female who presents in the office today for a follow up of bilateral knee pain. The patient had her last bilateral cortisone knee injections on 01/29/2023. She would like to repeat injections in the office today. She would also like to discuss Gel injections. [facility] Medical History Breast cancer COVID-19 vaccine series completed Depression GERD (gastroesophageal reflux disease) HX: breast cancer Hypothyroid Vertigo Surgical History H/O colonoscopy History of biopsy History of laparoscopic cholecystectomy History of lumpectomy of right breast (03/2018) History of surgery History of tonsillectomy and adenoidectomy History of tooth extraction S/P mastectomy, bilateral Family History Father No problems noted. Mother No problems noted. Sister Cancer of kidney Uterine cancer Social History Household Members: None Housing: House Are you a primary client care specialist to a significant other at home: No Do you presently have visiting nurse or other home services: No Alcohol intake: never Patient Tobacco Use Status: Former Tobacco user Quit Date: 40 years ago Tobacco use type: Cigarette Years Smoked: 20 years service: No Current occupational status: retired Gender identity: Female Review of Systems Const All systems reviewed & are unremarkable except as noted in HPI and below Physical Exam Vital Signs: BMI result Body Mass Index 30.8 Extrem Other: Bilateral knees normal to inspection no ecchymosis, erythema or joint effusion. Full knee ROM. NVI. Office Procedures Joint Injection/Drain Joint Injection/Drain Primary Site: right knee Secondary Site: left knee Prep: site was prepped using aseptic technique, ethochloride spray was applied and injection warnings given Injected: 80 mg of, DepoMedrol, with 8 mL of (2% plain lido ) and in the joint Approach Used: anterolateral Procedure: The patient tolerated the procedure well, but had some pain with the injection and there was some relief with the local anesthesia Coding 46526 - Large joint Procedure code (CPT) selection complete Results Reviewed Results Reviewed: 05/06/23 13:44 Lidocaine HCl 2 % MPF [Xylocaine 2 % MPF] 5 ml .ROUTE .STK-MED ONE methylPREDNISolone acetate [DEPO-MedroL] 80 mg .ROUTE .STK-MED ONE Assessment & Plan Assessment & Plan (1) Osteoarthritis of knees, bilateral: Code(s): M17.0 - Bilateral primary osteoarthritis of knee Plan Ms. Salomon is a 83-year-old female who presents in the office today for a follow up of bilateral knee pain. The patient had her last bilateral cortisone knee injections on 01/29/2023. She would like to repeat injections in the office today. She would also like to discuss Gel injections. The patient was offered a cortisone injection in the bilateral knees with 80 mg of DepoMedrol. The patient was explained the risk, benefits, and alternatives to receiving this injection. After receiving consent for the injection, the patient had the procedure done while in office today. The patient tolerated the procedure well with no complications. The office will petition the insurance for Gel injections. Follow up will be after authorization for Gel injections have been obtained, or sooner if needed. Patient Instructions: Scribed for Gricelda Lyons PA-C by Teresa Leal biomedical scientist, on 05/06/2023 at 1:41 pm, EST. Your attestation Coding Level of Care Code Est Pt Level 3 (63897) Diagnoses Osteoarthritis of knees, bilateral M17.0 CPT Codes Coding - 53886 Large joint: 18466 - Large joint ([id number])
== END 2023-05-06 14:59 | disposition home or self-care (01) ==
PROVIDERS: PCP Internal Medicine; Visit Provider Physician Assistant
DX: M17.0 Bilateral primary osteoarthritis of knee (principal)
CPT/HCPCS: 20610; 99213

== ENCOUNTER → 2023-05-06 13:35 | Outpatient (BNVA) | payer MEDICARE, SELFPAY | PROVIDERS: PCP Internal Medicine; Visit Provider Physician Assistant | DX: M17.0 Bilateral primary osteoarthritis of knee (principal) | CPT/HCPCS: 20610; 99212; J1040 ==

== ENCOUNTER 2023-06-01 09:05 | Outpatient (AMB) | payer MEDICARE, SELFPAY ==
--- NOTE | 2023-06-01 09:26 | MHC.OFFVIS ---
Intake Vital Signs 06/01/23 09:27 Height 5 ft 3 in Weight 174 lb BMI 30.8 Intake Visit Reasons: OV - B/L knee euflexxa #1 Intake Note: Ana is a 83 year old female who presents today for her bilateral knee euflexxa gel injections #1. Allergies Iodinated Contrast Media [IV CONTRAST] Allergy (Intermediate, Verified 06/01/23 09:29) itching isopropyl alcohol [ISOPROPYL ALCOHOL] Allergy (Intermediate, Verified 06/01/23 09:29) RASH/HIVES latex [LATEX] Allergy (Intermediate, Verified 06/01/23 09:29) HIVES,RASH,ITCHY nitrofurantoin [From MACRODANTIN] Allergy (Intermediate, Verified 06/01/23 09:29) RASH Penicillins [PENICILLINS] Allergy (Intermediate, Verified 06/01/23 09:29) HIVES phenazopyridine [From PYRIDIUM] Allergy (Intermediate, Verified 06/01/23 09:29) hives vancomycin Allergy (Verified 06/01/23 09:29) Itching ethanol Allergy (Intermediate, Uncoded 06/01/23 09:29) rash sulfa drugs Allergy (Intermediate, Uncoded 06/01/23 09:29) rash HPI OV - B/L knee euflexxa #1 HPI Details 83-year-old female who presents in the office today for a follow up of bilateral knee pain. She presents for her 1st Euflexxa injection in a series of 3 in the bilateral knees. [facility] Medical History Breast cancer COVID-19 vaccine series completed Depression GERD (gastroesophageal reflux disease) HX: breast cancer Hypothyroid Vertigo Surgical History H/O colonoscopy History of biopsy History of laparoscopic cholecystectomy History of lumpectomy of right breast (03/2018) History of surgery History of tonsillectomy and adenoidectomy History of tooth extraction S/P mastectomy, bilateral Family History Father No problems noted. Mother No problems noted. Sister Cancer of kidney Uterine cancer Social History Household Members: None Housing: House Are you a primary health care sanitary technician to a significant other at home: No Do you presently have visiting nurse or other home services: No Alcohol intake: never Patient Tobacco Use Status: Former Tobacco user Quit Date: 40 years ago Tobacco use type: Cigarette Years Smoked: 20 years service: No Current occupational status: retired Gender identity: Female Review of Systems Const All systems reviewed & are unremarkable except as noted in HPI and below Physical Exam Vital Signs: BMI result Body Mass Index 30.8 Const General: cooperative, healthy appearing and no acute distress Resp Effort & Inspection: normal respiratory effort and able to speak in complete sentences Cardio Rate: regular rate Peripheral pulses: Peripheral pulses 2+ throughout GI Palpation (GI): Soft to palpation Skin Lesions: no lesions Rashes: no rashes Extrem Other: Bilateral knees normal to inspection no ecchymosis, erythema or joint effusion. Full knee ROM. NVI. Office Procedures Joint Injection/Drain Joint Injection/Drain Primary Site: right knee Secondary Site: left knee Prep: site was prepped using aseptic technique, ethochloride spray was applied and injection warnings given Injected: in the joint (Euflexxa #1) Approach Used: anterolateral Procedure: The patient tolerated the procedure well, but had some pain with the injection and there was some relief with the local anesthesia Coding 04225 - Large joint Procedure code (CPT) selection complete Results Reviewed Results Reviewed: 06/01/23 09:11 Hyaluronate Sodium [Euflexxa] 20 mg INTRAARTIC .[facility] Assessment & Plan Assessment & Plan (1) Osteoarthritis of knees, bilateral: Code(s): M17.0 - Bilateral primary osteoarthritis of knee Plan Ms. Salomon is a 83-year-old female who presents in the office today for a follow up of bilateral knee pain. She presents for her 1st Euflexxa injection in a series of 3 in the bilateral knees. The patient was injection with her 1st Euflexxa injection in the bilateral knees. The patient was explained the risk, benefits, and alternatives to receiving this injection. After receiving consent for the injection, the patient had the procedure done while in office today. The patient tolerated the procedure well with no complications. Follow up will be in 1 week for her 2nd Euflexxa injection, or sooner if needed. Patient Instructions: Scribed for Gricelda Lyons PA-C by emily Payan scribe, on 06/01/2023 at 9:07 am, EST. Coding Level of Care Code Procedure Only Diagnoses Osteoarthritis of knees, bilateral M17.0 CPT Codes Coding - 92317 Large joint: 84910 - Large joint ([id number])
[2023-06-01 09:27] VITALS: BMI 30.8
== END 2023-06-01 09:42 | disposition home or self-care (01) ==
PROVIDERS: PCP Internal Medicine; Visit Provider Physician Assistant
DX: M17.0 Bilateral primary osteoarthritis of knee (principal)
CPT/HCPCS: 20610

== ENCOUNTER → 2023-06-01 09:05 | Outpatient (BNVA) | payer MEDICARE, SELFPAY | PROVIDERS: PCP Internal Medicine; Visit Provider Physician Assistant | DX: M17.0 Bilateral primary osteoarthritis of knee (principal) | CPT/HCPCS: 20610; J7323 ==

== ENCOUNTER 2023-06-10 10:38 | Outpatient (AMB) | payer MEDICARE, SELFPAY ==
--- NOTE | 2023-06-10 10:51 | A.OFFVIS_ITS ---
Intake Intake Visit Reasons: OV - B/L knee euflexxa #2 Intake Note: Ana is a 83 year old female who presents today for her bilateral knee euflexxa gel injections #2. Patient reports that she had a episode where her knee gave out on her and her knee hasn't done that in a while. Allergies Iodinated Contrast Media [IV CONTRAST] Allergy (Intermediate, Verified 06/10/23 10:52) itching isopropyl alcohol [ISOPROPYL ALCOHOL] Allergy (Intermediate, Verified 06/10/23 10:52) RASH/HIVES latex [LATEX] Allergy (Intermediate, Verified 06/10/23 10:52) HIVES,RASH,ITCHY nitrofurantoin [From MACRODANTIN] Allergy (Intermediate, Verified 06/10/23 10:52) RASH Penicillins [PENICILLINS] Allergy (Intermediate, Verified 06/10/23 10:52) HIVES phenazopyridine [From PYRIDIUM] Allergy (Intermediate, Verified 06/10/23 10:52) hives vancomycin Allergy (Verified 06/10/23 10:52) Itching ethanol Allergy (Intermediate, Uncoded 06/01/23 09:29) rash sulfa drugs Allergy (Intermediate, Uncoded 06/01/23 09:29) rash HPI OV - B/L knee euflexxa #2 HPI Details 83-year-old female who presents in the office today with her son for a follow up of bilateral knee pain. She presents for her 2nd Euflexxa injection in a series of 3 in the bilateral knees. The patient reports she has an episode of her knee giving out on her. She states that has not occurred in a while. She states she has notice a difference in pain since her last injection. Patient ambulates with a cane at home. [facility] Medical History Breast cancer COVID-19 vaccine series completed Depression GERD (gastroesophageal reflux disease) HX: breast cancer Hypothyroid Vertigo Surgical History H/O colonoscopy History of biopsy History of laparoscopic cholecystectomy History of lumpectomy of right breast (03/2018) History of surgery History of tonsillectomy and adenoidectomy History of tooth extraction S/P mastectomy, bilateral Family History Father No problems noted. Mother No problems noted. Sister Cancer of kidney Uterine cancer Social History Household Members: None Housing: House Are you a primary wound care coordinator to a significant other at home: No Do you presently have visiting nurse or other home services: No Alcohol intake: never Patient Tobacco Use Status: Former Tobacco user Quit Date: 40 years ago Tobacco use type: Cigarette Years Smoked: 20 years service: No Current occupational status: retired Gender identity: Female Review of Systems Const All systems reviewed & are unremarkable except as noted in HPI and below Physical Exam Const General: cooperative, healthy appearing and no acute distress Resp Effort & Inspection: normal respiratory effort and able to speak in complete sentences Cardio Rate: regular rate Peripheral pulses: Peripheral pulses 2+ throughout GI Palpation (GI): Soft to palpation Skin Lesions: no lesions Rashes: no rashes Extrem Other: Bilateral knees normal to inspection no ecchymosis, erythema or joint effusion. Full knee ROM. NVI. Office Procedures Joint Injection/Drain Joint Injection/Drain Primary Site: right knee Secondary Site: left knee Prep: site was prepped using aseptic technique, ethochloride spray was applied and injection warnings given Injected: other (Euflexxa #2) Approach Used: anterolateral Procedure: The patient tolerated the procedure well, but had some pain with the injection and there was some relief with the local anesthesia Coding 10641 - Large joint Procedure code (CPT) selection complete Results Reviewed Results Reviewed: 06/10/23 10:43 Hyaluronate Sodium [Euflexxa] [facility] Assessment & Plan Assessment & Plan (1) Osteoarthritis of knees, bilateral: Code(s): M17.0 - Bilateral primary osteoarthritis of knee Plan Ms. Salomon is a 83-year-old female who presents in the office today with her son for a follow up of bilateral knee pain. She presents for her 2nd Euflexxa injection in a series of 3 in the bilateral knees. The patient reports she has an episode of her knee giving out on her. She states that has not occurred in a while. Patient ambulates with a cane at home. The patient was injection with her 2nd Euflexxa injection in the bilateral knees. The patient was explained the risk, benefits, and alternatives to receiving this injection. After receiving consent for the injection, the patient had the procedure done while in office today. The patient tolerated the procedure well with no complications. I sent in a prescription for a walker in case she needs extra support when walking. Follow up will be in 1 weeks for her 3rd Euflexxa injection in a series of 3, or sooner if needed. Patient Instructions: Scribed for Gricelda Lyons PA-C by Teresa Leal medical researcher, on 06/10/2023 at 10:45 am, EST. Coding Level of Care Code Procedure Only Diagnoses Osteoarthritis of knees, bilateral M17.0 CPT Codes Coding - 14864 Large joint: 64387 - Large joint ([id number])
== END 2023-06-10 11:03 | disposition home or self-care (01) ==
PROVIDERS: PCP Internal Medicine; Visit Provider Physician Assistant
DX: M17.0 Bilateral primary osteoarthritis of knee (principal)
CPT/HCPCS: 20610

== ENCOUNTER → 2023-06-10 10:38 | Outpatient (BNVA) | payer MEDICARE, SELFPAY | PROVIDERS: PCP Internal Medicine; Visit Provider Physician Assistant | DX: M17.0 Bilateral primary osteoarthritis of knee (principal) | CPT/HCPCS: 20610; J7323 ==

== ENCOUNTER 2023-06-15 09:36 | Outpatient (AMB) | payer MEDICARE, SELFPAY ==
[2023-06-15 09:43] VITALS: BMI 30.8
--- NOTE | 2023-06-15 09:43 | MHC.OFFVIS ---
Intake Vital Signs 06/15/23 09:43 Height 5 ft 3 in Weight 174 lb BMI 30.8 Intake Visit Reasons: OV - B/L knee euflexxa #3 Intake Note: Ana is a 83 year old female who presents today for her bilateral knee euflexxa gel injections #3. Patient reports that she hasn't felt a difference yet she is still feeling a little bit of pain. Allergies Iodinated Contrast Media [IV CONTRAST] Allergy (Intermediate, Verified 06/15/23 09:44) itching isopropyl alcohol [ISOPROPYL ALCOHOL] Allergy (Intermediate, Verified 06/15/23 09:44) RASH/HIVES latex [LATEX] Allergy (Intermediate, Verified 06/15/23 09:44) HIVES,RASH,ITCHY nitrofurantoin [From MACRODANTIN] Allergy (Intermediate, Verified 06/15/23 09:44) RASH Penicillins [PENICILLINS] Allergy (Intermediate, Verified 06/15/23 09:44) HIVES phenazopyridine [From PYRIDIUM] Allergy (Intermediate, Verified 06/15/23 09:44) hives vancomycin Allergy (Verified 06/15/23 09:44) Itching ethanol Allergy (Intermediate, Uncoded 06/01/23 09:29) rash sulfa drugs Allergy (Intermediate, Uncoded 06/01/23 09:29) rash HPI OV - B/L knee euflexxa #3 HPI Details 83-year-old female who presents in the office today for a follow up of bilateral knee pain. She presents for her 3rd Euflexxa injection in a series of 3 in the bilateral knees. The patient reports she has not felt a difference in the knee yet. She confirms feeling a little bit of pain. [facility] Medical History Breast cancer COVID-19 vaccine series completed Depression GERD (gastroesophageal reflux disease) HX: breast cancer Hypothyroid Vertigo Surgical History H/O colonoscopy History of biopsy History of laparoscopic cholecystectomy History of lumpectomy of right breast (03/2018) History of surgery History of tonsillectomy and adenoidectomy History of tooth extraction S/P mastectomy, bilateral Family History Father No problems noted. Mother No problems noted. Sister Cancer of kidney Uterine cancer Social History Household Members: None Housing: House Are you a primary palliative care specialist to a significant other at home: No Do you presently have visiting nurse or other home services: No Alcohol intake: never Patient Tobacco Use Status: Former Tobacco user Quit Date: 40 years ago Tobacco use type: Cigarette Years Smoked: 20 years service: No Current occupational status: retired Gender identity: Female Review of Systems Const All systems reviewed & are unremarkable except as noted in HPI and below Physical Exam Vital Signs: BMI result Body Mass Index 30.8 Const General: cooperative, healthy appearing and no acute distress Resp Effort & Inspection: normal respiratory effort and able to speak in complete sentences Cardio Rate: regular rate Peripheral pulses: Peripheral pulses 2+ throughout GI Palpation (GI): Soft to palpation Skin Lesions: no lesions Rashes: no rashes Extrem Other: Bilateral knees normal to inspection no ecchymosis, erythema or joint effusion. Full knee ROM. NVI. Office Procedures Joint Injection/Drain Joint Injection/Drain Primary Site: right knee Secondary Site: left knee Prep: site was prepped using aseptic technique, ethochloride spray was applied and injection warnings given Injected: in the joint (Euflexxa #3) Approach Used: anterolateral Procedure: The patient tolerated the procedure well, but had some pain with the injection and there was some relief with the local anesthesia Coding 44431 - Large joint Procedure code (CPT) selection complete Results Reviewed Results Reviewed: 06/15/23 09:35 Hyaluronate Sodium [Euflexxa] 20 [facility]IC [facility] Assessment & Plan Assessment & Plan (1) Osteoarthritis of knees, bilateral: Code(s): M17.0 - Bilateral primary osteoarthritis of knee Plan Ms. Salomon is an 83-year-old female who presents in the office today for a follow up of bilateral knee pain. She presents for her 3rd Euflexxa injection in a series of 3 in the bilateral knees. The patient reports she has not felt a difference in the knee yet. She confirms feeling a little bit of pain. The patient was injection with her 3rd Euflexxa injection in the bilateral knees. The patient was explained the risk, benefits, and alternatives to receiving this injection. After receiving consent for the injection, the patient had the procedure done while in office today. The patient tolerated the procedure well with no complications. Follow up will be PRN, or sooner if needed. Patient Instructions: Scribed for Gricelda Lyons PA-C by emily Payan scribe, on 06/15/2023 at 9:48 am, EST. Coding Level of Care Code Procedure Only Diagnoses Osteoarthritis of knees, bilateral M17.0 CPT Codes Coding - 41028 Large joint: 24937 - Large joint ([id number])
== END 2023-06-15 10:15 | disposition home or self-care (01) ==
PROVIDERS: PCP Internal Medicine; Visit Provider Physician Assistant
DX: M17.0 Bilateral primary osteoarthritis of knee (principal)
CPT/HCPCS: 20610

== ENCOUNTER → 2023-06-15 09:36 | Outpatient (BNVA) | payer MEDICARE, SELFPAY | PROVIDERS: PCP Internal Medicine; Visit Provider Physician Assistant | DX: M17.0 Bilateral primary osteoarthritis of knee (principal) | CPT/HCPCS: 20610; J7323 ==

== ENCOUNTER 2023-07-06 08:27 | Outpatient (AMB) | payer MEDICARE, SELFPAY ==
--- NOTE | 2023-07-06 08:29 | MHC.OFFVIS ---
Intake Vital Signs 07/06/23 08:37 Height 5 ft 3 in Weight 176 lb 6 oz BMI 31.2 BP 140/88 H Blood Pressure Location Rt brachial Position Sitting Intake Visit Reasons: Lt arm swelling Intake Note: Patient is seen in office for left arm swelling, following breast exam. 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: No Accompanied by: Self / Same As Patient Allergies Iodinated Contrast Media [IV CONTRAST] Allergy (Intermediate, Verified 07/06/23 08:38) itching isopropyl alcohol [ISOPROPYL ALCOHOL] Allergy (Intermediate, Verified 07/06/23 08:38) RASH/HIVES latex [LATEX] Allergy (Intermediate, Verified 07/06/23 08:38) HIVES,RASH,ITCHY nitrofurantoin [From MACRODANTIN] Allergy (Intermediate, Verified 07/06/23 08:38) RASH Penicillins [PENICILLINS] Allergy (Intermediate, Verified 07/06/23 08:38) HIVES phenazopyridine [From PYRIDIUM] Allergy (Intermediate, Verified 07/06/23 08:38) hives vancomycin Allergy (Verified 07/06/23 08:38) Itching ethanol Allergy (Intermediate, Uncoded 07/06/23 08:38) rash sulfa drugs Allergy (Intermediate, Uncoded 07/06/23 08:38) rash HPI HPI Comments History of Present Illness Details Ana Salomon is a 83-year-old female patient returning for a breast cancer follow-up examination.? She reports left arm swelling which is new. She was previously diagnosed with right breast invasive ductal carcinoma after finding a breast mass.? Ultrasound-guided core biopsy at [facility] on 03/29/2018 revealed invasive ductal carcinoma, grade 2, with ductal carcinoma in situ (high-grade), apocrine type with comedonecrosis and microcalcifications, triple negative.? She underwent a right breast needle localization lumpectomy with sentinel node biopsy on 04/16/2018.? Path revealed a 1.8 x 1.5 cm invasive ductal carcinoma, right breast, 0 of 5 nodes with metastatic disease.? Margins 0.1 cm from the closest margin with invasive cancer and 0.1 cm from closest margin at the deep posterior margin with DCIS.? She was evaluated by Medical and Radiation Oncology.? She completed chemotherapy with Dr. Quinn, including Taxol.? This was followed by radiation therapy. A mammogram dated 05/01/2021 with focused ultrasound on 05/08/2021 revealed a new small focal asymmetric density in the lower inner left breast mid depth with possible ultrasound correlate. 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 At the patient's request she underwent left modified radical mastectomy and right simple mastectomy on 06/04/2021. Her postoperative course was complicated by a left breast seroma which required several needle aspirations. She is being followed by Dr. Quinn who recommended Herceptin. She declined this treatment and preferred watchful waiting. She reports developing swelling in the left arm after working in her yd pulling weeds and bessie. She had a small area on her forearm which was red and slightly painful for a day, but eventually this resolved however the swelling continued. She denies any arm pain or other chest symptoms. She otherwise feels well. She would like to do chair yoga if possible. [facility] Medical History COVID-19 vaccine series completed Breast cancer HX: breast cancer Hypothyroid GERD (gastroesophageal reflux disease) Depression Vertigo Surgical History S/P mastectomy, bilateral History of surgery H/O colonoscopy History of lumpectomy of right breast (03/2018) History of tooth extraction History of laparoscopic cholecystectomy History of tonsillectomy and adenoidectomy History of biopsy Family History Father No problems noted. Mother No problems noted. Sister Cancer of kidney Uterine cancer Social History Household Members: None Housing: House Are you a primary manager critical care to a significant other at home: No Do you presently have visiting nurse or other home services: No Alcohol intake: never Patient Tobacco Use Status: Former Tobacco user Quit Date: 40 years ago Tobacco use type: Cigarette Years Smoked: 20 years service: No Current occupational status: retired Gender identity: Female Review of Systems Const All systems reviewed & are unremarkable except as noted in HPI and below Card Denies chest pain Denies nipple discharge Musc Details: Left arm swelling Reports as per HPI Skin/Breast Details: Recent history of shingles around [place] time Denies breast swelling, Denies breast skin changes, Denies breast pain, Denies breast mass, Denies change in breast shape, Denies change in pigmentation and Denies nipple discharge Physical Exam Vital Signs: Last Vital Signs BP 140/88 H 07/06/23 08:37 BMI result Body Mass Index 31.2 Const General: no acute distress and well developed Nutritional Appearance: well nourished Orientation/consciousness: patient oriented x3 Limitations: no limitations HEENT Other: Hard of hearing Neck Neck: Yes no lymphadenopathy Chest Other: Bilateral mastectomy, redundant skin in the axilla. Left chest wounds are clean, dry, and intact. The skin is soft with no inflammatory changes. No seroma on either side. No palpable mass, skin change, or lymphadenopathy appreciated. Right chest also is clean, dry and intact with no palpable lymphadenopathy or fluid collections. Skin Other: Warm, dry, no rash Neuro General: patient oriented x3 Extrem Other: Slight increased size of left arm compared to right with lymphedema noted along the medial forearm. No erythema, skin break or abscess appreciated. Assessment & Plan Assessment & Plan (1) Invasive ductal carcinoma of breast, female: Onset Date: 05/13/21 Code(s): C50.919 - Malignant neoplasm of unspecified site of unspecified female breast Qualifiers: Laterality: unspecified laterality Qualified Code(s): C50.919 - Malignant neoplasm of unspecified site of unspecified female breast (2) Lymphedema of left arm: Code(s): I89.0 - Lymphedema, not elsewhere classified Plan 83-year-old female patient with a prior history of bilateral breast cancer returning with complaints of swelling in the left arm of several weeks duration. Patient denies any pain in the arm. We discussed physical therapy which she is not particularly interested in. I would recommend further workup with an ultrasound of the axilla. As she is not a candidate for mammograms I recommended evaluation with bilateral ultrasounds of the chest as well. I will call her with the results once available. She will follow-up in 6 months for routine breast examination, sooner p.r.n.. Orders: Orders US breast LT limited Today C50.919 - Malignant neoplasm of unspecified site of unspecified female breast, I89.0 - Lymphedema, not elsewhere classified US breast RT complete Today C50.919 - Malignant neoplasm of unspecified site of unspecified female breast, I89.0 - Lymphedema, not elsewhere classified Coding Level of Care Code Est Pt Level 3 (64540) Diagnoses Infiltrating ductal carcinoma of female breast, unspecified laterality C50.919 Laterality: unspecified laterality Lymphedema of left arm I89.0
[2023-07-06 08:37] VITALS: BP 140/88; BMI 31.2
== END 2023-07-06 08:46 | disposition home or self-care (01) ==
PROVIDERS: PCP Internal Medicine; Referring Provider Internal Medicine; Visit Provider Surgery
DX: C50.919 Malignant neoplasm of unspecified site of unspecified female breast (principal); I89.0 Lymphedema, not elsewhere classified
CPT/HCPCS: 99213

== ENCOUNTER → 2023-07-06 08:27 | Outpatient (BNVA) | payer MEDICARE, SELFPAY | PROVIDERS: PCP Internal Medicine; Referring Provider Internal Medicine; Visit Provider Surgery | DX: I89.0 Lymphedema, not elsewhere classified (principal); C50.912 Malignant neoplasm of unspecified site of left female breast | CPT/HCPCS: 99212 ==

== ENCOUNTER 2023-07-09 11:54 | Outpatient (REF) | payer MEDICARE, SELFPAY ==
--- NOTE | ~2023-07-09 | US_ITS ---
EXAMINATION: US DIAGNOSTIC ULTRASOUND BREAST, BILATERAL CLINICAL INFORMATION: Left arm lymphedema. Status post bilateral mastectomy. Please check bilateral chest and axilla for cause. COMPARISON: None available. TECHNIQUE: Ultrasound of the bilateral axillary regions is performed with real-time de leon scale imaging and color Doppler. FINDINGS: There is no focal suspicious adenopathy in either axillary region or involving the superior bilateral chest [place]. No fluid collections evident. No edema within the soft tissue planes. The major axillary vein appears patent bilaterally. Results were discussed with the patient at time of visit. US/US breast LT limited mamm only IMPRESSION: No abnormal findings to explain lymphedema. No adenopathy or other mass. ASSESSMENT: BI-RADS 1: Negative RECOMMENDATION: Routine annual mammography screening. This patient's information was entered into a reminder system with a target due date for their next mammogram.
--- NOTE | ~2023-07-09 | US_ITS ---
EXAMINATION: US DIAGNOSTIC ULTRASOUND BREAST, BILATERAL CLINICAL INFORMATION: Left arm lymphedema. Status post bilateral mastectomy. Please check bilateral chest and axilla for cause. COMPARISON: None available. TECHNIQUE: Ultrasound of the bilateral axillary regions is performed with real-time de leon scale imaging and color Doppler. FINDINGS: There is no focal suspicious adenopathy in either axillary region or involving the superior bilateral chest [place]. No fluid collections evident. No edema within the soft tissue planes. The major axillary vein appears patent bilaterally. Results were discussed with the patient at time of visit. US/US breast RT limited mamm only IMPRESSION: No abnormal findings to explain lymphedema. No adenopathy or other mass. ASSESSMENT: BI-RADS 1: Negative RECOMMENDATION: Routine annual mammography screening. This patient's information was entered into a reminder system with a target due date for their next mammogram.
== END 2023-07-09 11:55 | disposition home or self-care (01) ==
LOC: HO.MAMMO 11:54
PROVIDERS: PCP Internal Medicine; Visit Provider Surgery
DX: C50.919 Malignant neoplasm of unspecified site of unspecified female breast (principal); I89.0 Lymphedema, not elsewhere classified; Z90.13 Acquired absence of bilateral breasts and nipples
CPT/HCPCS: 76642

== ENCOUNTER → 2023-07-09 12:00 | Outpatient (BNV) | payer MEDICARE, SELFPAY | PROVIDERS: PCP Internal Medicine; Visit Provider Radiology Diagnostic Radiology | DX: I89.0 Lymphedema, not elsewhere classified (principal); Z90.13 Acquired absence of bilateral breasts and nipples | CPT/HCPCS: 76882 ==

== ENCOUNTER 2023-09-17 08:26 | Outpatient (AMB) | payer MEDICARE, SELFPAY ==
[2023-09-17 08:36] VITALS: BMI 31.4
--- NOTE | 2023-09-17 08:36 | A.OFFVIS_ITS ---
Intake Vital Signs 09/17/23 08:36 Height 5 ft 3 in Weight 177 lb BMI 31.4 Intake Visit Reasons: ov- B/L knee pain Intake Note: Ana is a 83 year old female whop resents today for bilateral knee injections. Allergies Iodinated Contrast Media [IV CONTRAST] Allergy (Intermediate, Verified 09/17/23 08:37) itching isopropyl alcohol [ISOPROPYL ALCOHOL] Allergy (Intermediate, Verified 09/17/23 08:37) RASH/HIVES latex [LATEX] Allergy (Intermediate, Verified 09/17/23 08:37) HIVES,RASH,ITCHY nitrofurantoin [From MACRODANTIN] Allergy (Intermediate, Verified 09/17/23 08:37) RASH Penicillins [PENICILLINS] Allergy (Intermediate, Verified 09/17/23 08:37) HIVES phenazopyridine [From PYRIDIUM] Allergy (Intermediate, Verified 09/17/23 08:37) hives vancomycin Allergy (Verified 09/17/23 08:37) Itching ethanol Allergy (Intermediate, Uncoded 07/27/23 10:08) rash sulfa drugs Allergy (Intermediate, Uncoded 07/27/23 10:08) rash HPI ov- B/L knee pain HPI Details Patient presents to the office today for bilateral knee cortisone injections. Reports that she fell about two weeks ago landing on her left hip but then tried to get up by kneeling and ever since her knees have been more painful. [facility] Medical History COVID-19 vaccine series completed Breast cancer HX: breast cancer Hypothyroid GERD (gastroesophageal reflux disease) Depression Vertigo Surgical History S/P mastectomy, bilateral History of surgery H/O colonoscopy History of lumpectomy of right breast (03/2018) History of tooth extraction History of laparoscopic cholecystectomy History of tonsillectomy and adenoidectomy History of biopsy Family History Father No problems noted. Mother No problems noted. Sister Cancer of kidney Uterine cancer Social History Household Members: None Housing: House Are you a primary child care centre director to a significant other at home: No Do you presently have visiting nurse or other home services: No Alcohol intake: never Comment: uses cane if vertigo acts up Patient Tobacco Use Status: Former Tobacco user Quit Date: 40 years ago Tobacco use type: Cigarette Years Smoked: 20 years service: No Current occupational status: retired Gender identity: Female Review of Systems Const All systems reviewed & are unremarkable except as noted in HPI and below Physical Exam Vital Signs: BMI result Body Mass Index 31.4 Const General: cooperative, healthy appearing and no acute distress Resp Effort & Inspection: normal respiratory effort and able to speak in complete sentences Cardio Rate: regular rate Peripheral pulses: Peripheral pulses 2+ throughout GI Palpation (GI): Soft to palpation Skin Lesions: no lesions Rashes: no rashes Extrem Other: Bilateral knees normal to inspection no ecchymosis, erythema or joint effusion. Full knee ROM. NVI. Office Procedures Joint Injection/Drain Joint Injection/Drain Primary Site: right knee Secondary Site: left knee Prep: site was prepped using aseptic technique, ethochloride spray was applied and injection warnings given Injected: 80 mg of, DepoMedrol, with 8 mL of (2% plain lido ) and in the joint Approach Used: anterolateral Procedure: The patient tolerated the procedure well, but had some pain with the injection and there was some relief with the local anesthesia Coding - Large joint Procedure code (CPT) selection complete Assessment & Plan Assessment & Plan (1) Osteoarthritis of knees, bilateral: Code(s): M17.0 - Bilateral primary osteoarthritis of knee Plan Ms. Salomon is an 83-year-old female who presents in the office today for a follow up of bilateral knee pain. SHe is looking for repeat cortisone injections. Reports that she fell about two weeks ago landing on her left hip but then tried to get up by kneeling and ever since her knees have been more painful. The patient was injected with 80mg of depo in bilateral knees. The patient was explained the risk, benefits, and alternatives to receiving this injection. After receiving consent for the injection, the patient had the procedure done while in office today. The patient tolerated the procedure well with no complications. Follow up will be PRN, or sooner if needed. Coding Level of Care Code Est Pt Level 3 (05898) Diagnoses Osteoarthritis of knees, bilateral M17.0 CPT Codes Coding - Large joint: 54568 - Large joint ([id number])
== END 2023-09-17 08:41 | disposition home or self-care (01) ==
PROVIDERS: PCP Internal Medicine; Visit Provider Physician Assistant
DX: M17.0 Bilateral primary osteoarthritis of knee (principal)
CPT/HCPCS: 20610

== ENCOUNTER → 2023-09-17 08:26 | Outpatient (BNVA) | payer MEDICARE, SELFPAY | PROVIDERS: PCP Internal Medicine; Visit Provider Physician Assistant | DX: M17.0 Bilateral primary osteoarthritis of knee (principal) | CPT/HCPCS: 20610; J1040 ==

== ENCOUNTER 2024-01-07 10:08 | Outpatient (AMB) | payer MEDICARE, SELFPAY ==
--- NOTE | 2024-01-07 10:18 | MHC.OFFVIS ---
Intake Vital Signs 01/07/24 10:19 Height 5 ft 3 in Weight 177 lb BMI 31.4 Intake Visit Reasons: Bilateral Euflexxa Knee Inj #1 Intake Note: Ana is a 83 year old female who presents today for her first bilateral knee euflexxa gel injections. Patient reports that her last injections gave her a couple months of relief, however she had to wait a little bit due to the shortage of the gel injections. Allergies Iodinated Contrast Media [IV CONTRAST] Allergy (Intermediate, Verified 01/07/24 10:19) itching isopropyl alcohol [ISOPROPYL ALCOHOL] Allergy (Intermediate, Verified 01/07/24 10:19) RASH/HIVES latex [LATEX] Allergy (Intermediate, Verified 01/07/24 10:19) HIVES,RASH,ITCHY nitrofurantoin [From MACRODANTIN] Allergy (Intermediate, Verified 01/07/24 10:19) RASH Penicillins [PENICILLINS] Allergy (Intermediate, Verified 01/07/24 10:19) HIVES phenazopyridine [From PYRIDIUM] Allergy (Intermediate, Verified 01/07/24 10:19) hives vancomycin Allergy (Verified 01/07/24 10:19) Itching ethanol Allergy (Intermediate, Uncoded 07/27/23 10:08) rash sulfa drugs Allergy (Intermediate, Uncoded 07/27/23 10:08) rash HPI Bilateral Euflexxa Knee Inj #1 HPI Details 83-year-old female who presents in the office today for a follow up of bilateral knee osteoarthritis and to obtain her 1st Euflexxa injection in a series of 3. I last saw the patient in the office on 09/17/2023 at which time she received bilateral knee cortisone injections. While in the office today the patient reports her last injections gave her a couple of months relief. However, she had to wait a bit due to the shortage of the gel injections. [facility] Medical History COVID-19 vaccine series completed Breast cancer HX: breast cancer Hypothyroid GERD (gastroesophageal reflux disease) Depression Vertigo Surgical History S/P mastectomy, bilateral History of surgery H/O colonoscopy History of lumpectomy of right breast (03/2018) History of tooth extraction History of laparoscopic cholecystectomy History of tonsillectomy and adenoidectomy History of biopsy Family History Father No problems noted. Mother No problems noted. Sister Cancer of kidney Uterine cancer Social History Household Members: None Housing: House Are you a primary director of career services to a significant other at home: No Do you presently have visiting nurse or other home services: No Alcohol intake: never Comment: uses cane if vertigo acts up Patient Tobacco Use Status: Former Tobacco user Quit Date: 40 years ago Tobacco use type: Cigarette Years Smoked: 20 years service: No Current occupational status: retired Gender identity: Female Review of Systems Const All systems reviewed & are unremarkable except as noted in HPI and below Physical Exam Vital Signs: BMI result Body Mass Index 31.4 Const General: cooperative, healthy appearing and no acute distress Resp Effort & Inspection: normal respiratory effort and able to speak in complete sentences Cardio Rate: regular rate Peripheral pulses: Peripheral pulses 2+ throughout GI Palpation (GI): Soft to palpation Skin Lesions: no lesions Rashes: no rashes Extrem Other: Bilateral knees normal to inspection no ecchymosis, erythema or joint effusion. Full knee ROM. NVI. Office Procedures Joint Injection/Drain Joint Injection/Drain Primary Site: right knee Secondary Site: left knee Prep: site was prepped using aseptic technique, ethochloride spray was applied and injection warnings given Injected: in the joint (Euflexxa #1) Approach Used: anterolateral Procedure: The patient tolerated the procedure well, but had some pain with the injection and there was some relief with the local anesthesia Coding 81395 - Large joint Procedure code (CPT) selection complete Assessment & Plan Assessment & Plan (1) Osteoarthritis of knees, bilateral: Code(s): M17.0 - Bilateral primary osteoarthritis of knee Qualifiers: Osteoarthritis type: unspecified Qualified Code(s): M17.0 - Bilateral primary osteoarthritis of knee Plan Ms. Salomon is an 83-year-old female who presents in the office today for a follow up of bilateral knee osteoarthritis and to obtain her 1st Euflexxa injection in a series of 3. I last saw the patient in the office on 09/17/2023 at which time she received bilateral knee cortisone injections. While in the office today the patient reports her last injections gave her a couple of months relief. However, she had to wait a bit due to the shortage of the gel injections. The patient was injection with her 1st Euflexxa injection in the bilateral knees. The patient was explained the risk, benefits, and alternatives to receiving this injection. After receiving consent for the injection, the patient had the procedure done while in office today. The patient tolerated the procedure well with no complications. Follow up will be in 1 week for your next Euflexxa injection, or sooner if needed. Patient Instructions: Scribed by Teresa Leal medical resident, for Gricelda Lyons PA-C on 01/07/2024 at 10:25 am, EST. Coding Level of Care Code Procedure Only Diagnoses Osteoarthritis of both knees, unspecified osteoarthritis type M17.0 Osteoarthritis type: unspecified CPT Codes Coding - 79127 Large joint: 60414 - Large joint ([id number])
[2024-01-07 10:19] VITALS: BMI 31.4
== END 2024-01-07 10:26 | disposition home or self-care (01) ==
PROVIDERS: PCP Internal Medicine; Visit Provider Physician Assistant
DX: M17.0 Bilateral primary osteoarthritis of knee (principal)
CPT/HCPCS: 20610

== ENCOUNTER → 2024-01-07 10:08 | Outpatient (BNVA) | payer MEDICARE, SELFPAY | PROVIDERS: PCP Internal Medicine; Visit Provider Physician Assistant | DX: M17.0 Bilateral primary osteoarthritis of knee (principal) | CPT/HCPCS: 20610; J7323 ==

== ENCOUNTER 2024-01-21 08:27 | Outpatient (AMB) | payer MEDICARE, SELFPAY ==
--- NOTE | 2024-01-21 08:57 | MHC.OFFVIS ---
Intake Intake Visit Reasons: Bilateral Euflexxa Knee Inj #2 Allergies Iodinated Contrast Media [IV CONTRAST] Allergy (Intermediate, Verified 01/07/24 10:19) itching isopropyl alcohol [ISOPROPYL ALCOHOL] Allergy (Intermediate, Verified 01/07/24 10:19) RASH/HIVES latex [LATEX] Allergy (Intermediate, Verified 01/07/24 10:19) HIVES,RASH,ITCHY nitrofurantoin [From MACRODANTIN] Allergy (Intermediate, Verified 01/07/24 10:19) RASH Penicillins [PENICILLINS] Allergy (Intermediate, Verified 01/07/24 10:19) HIVES phenazopyridine [From PYRIDIUM] Allergy (Intermediate, Verified 01/07/24 10:19) hives vancomycin Allergy (Verified 01/07/24 10:19) Itching ethanol Allergy (Intermediate, Uncoded 07/27/23 10:08) rash sulfa drugs Allergy (Intermediate, Uncoded 07/27/23 10:08) rash HPI Bilateral Euflexxa Knee Inj #2 HPI Details 83-year-old female who presents in the office today for a follow up of bilateral knees and to obtain her 2nd Euflexxa injection in a series of 3. [facility] Medical History COVID-19 vaccine series completed Breast cancer HX: breast cancer Hypothyroid GERD (gastroesophageal reflux disease) Depression Vertigo Surgical History S/P mastectomy, bilateral History of surgery H/O colonoscopy History of lumpectomy of right breast (03/2018) History of tooth extraction History of laparoscopic cholecystectomy History of tonsillectomy and adenoidectomy History of biopsy Family History Father No problems noted. Mother No problems noted. Sister Cancer of kidney Uterine cancer Social History Household Members: None Housing: House Are you a primary acute care nurse practitioner to a significant other at home: No Do you presently have visiting nurse or other home services: No Alcohol intake: never Comment: uses cane if vertigo acts up Patient Tobacco Use Status: Former Tobacco user Quit Date: 40 years ago Tobacco use type: Cigarette Years Smoked: 20 years service: No Current occupational status: retired Gender identity: Female Review of Systems Const All systems reviewed & are unremarkable except as noted in HPI and below Physical Exam Const General: cooperative, healthy appearing and no acute distress Resp Effort & Inspection: normal respiratory effort and able to speak in complete sentences Cardio Rate: regular rate Peripheral pulses: Peripheral pulses 2+ throughout GI Palpation (GI): Soft to palpation Skin Lesions: no lesions Rashes: no rashes Extrem Other: Bilateral knees normal to inspection no ecchymosis, erythema or joint effusion. Full knee ROM. NVI. Office Procedures Joint Injection/Drain Joint Injection/Drain Primary Site: right knee Secondary Site: left knee Injected: in the joint (Euflexxa #2) Approach Used: anterolateral Procedure: The patient tolerated the procedure well, but had some pain with the injection and there was some relief with the local anesthesia Coding 59564 - Large joint Procedure code (CPT) selection complete Assessment & Plan Assessment & Plan (1) Osteoarthritis of knees, bilateral: Code(s): M17.0 - Bilateral primary osteoarthritis of knee Qualifiers: Osteoarthritis type: unspecified Qualified Code(s): M17.0 - Bilateral primary osteoarthritis of knee Plan Ms. Salomon is an 83-year-old female who presents in the office today for a follow up of bilateral knees and to obtain her 2nd Euflexxa injection in a series of 3. The patient was injection with her 2nd Euflexxa injection in the bilateral knees. The patient was explained the risk, benefits, and alternatives to receiving this injection. After receiving consent for the injection, the patient had the procedure done while in office today. The patient tolerated the procedure well with no complications. Follow up will be in 1 week for the 3rd injection, or sooner if needed. Patient Instructions: Scribed by Teresa Leal medical bill processor, for Gricelda Lyons PA-C on 01/21/2024 at 8:40 am, EST. Coding Level of Care Code Procedure Only Diagnoses Osteoarthritis of both knees, unspecified osteoarthritis type M17.0 Osteoarthritis type: unspecified CPT Codes Coding - 57686 Large joint: 81352 - Large joint ([id number])
== END 2024-01-21 09:05 | disposition home or self-care (01) ==
PROVIDERS: PCP Internal Medicine; Visit Provider Physician Assistant
DX: M17.0 Bilateral primary osteoarthritis of knee (principal)
CPT/HCPCS: 20610

== ENCOUNTER → 2024-01-21 08:27 | Outpatient (BNVA) | payer MEDICARE, SELFPAY | PROVIDERS: PCP Internal Medicine; Visit Provider Physician Assistant | DX: M17.0 Bilateral primary osteoarthritis of knee (principal) | CPT/HCPCS: 20610; J7323 ==

== ENCOUNTER 2024-01-28 08:20 | Outpatient (AMB) | payer MEDICARE, SELFPAY ==
--- NOTE | 2024-01-28 08:24 | A.OFFVIS_ITS ---
Intake Intake Visit Reasons: Bilateral Euflexxa Knee Inj #3 Intake Note: Ana is a 83 year old female who presents today for her third bilateral knee euflexxa gel injections. Patient reports she is doing great after receiving two of the shot. Allergies Iodinated Contrast Media [IV CONTRAST] Allergy (Intermediate, Verified 01/07/24 10:19) itching isopropyl alcohol [ISOPROPYL ALCOHOL] Allergy (Intermediate, Verified 01/07/24 10:19) RASH/HIVES latex [LATEX] Allergy (Intermediate, Verified 01/07/24 10:19) HIVES,RASH,ITCHY nitrofurantoin [From MACRODANTIN] Allergy (Intermediate, Verified 01/07/24 10:19) RASH Penicillins [PENICILLINS] Allergy (Intermediate, Verified 01/07/24 10:19) HIVES phenazopyridine [From PYRIDIUM] Allergy (Intermediate, Verified 01/07/24 10:19) hives vancomycin Allergy (Verified 01/07/24 10:19) Itching ethanol Allergy (Intermediate, Uncoded 07/27/23 10:08) rash sulfa drugs Allergy (Intermediate, Uncoded 07/27/23 10:08) rash HPI Bilateral Euflexxa Knee Inj #3 HPI Details 83-year-old female who presents in the [facility] today for a follow up of bilateral knee pain and to obtain her 3rd Euflexxa injection in a series of 3. Patient reports she is doing great after the first two injections. [facility] Medical History COVID-19 vaccine series completed Breast cancer HX: breast cancer Hypothyroid GERD (gastroesophageal reflux disease) Depression Vertigo Surgical History S/P mastectomy, bilateral History of surgery H/O colonoscopy History of lumpectomy of right breast (03/2018) History of tooth extraction History of laparoscopic cholecystectomy History of tonsillectomy and adenoidectomy History of biopsy Family History Father No problems noted. Mother No problems noted. Sister Cancer of kidney Uterine cancer Social History Household Members: None Housing: House Are you a primary progressive care nurse to a significant other at home: No Do you presently have visiting nurse or other home services: No Alcohol intake: never Comment: uses cane if vertigo acts up Patient Tobacco Use Status: Former Tobacco user Quit Date: 40 years ago Tobacco use type: Cigarette Years Smoked: 20 years service: No Current occupational status: retired Gender identity: Female Review of Systems Const All systems reviewed & are unremarkable except as noted in HPI and below Physical Exam Const General: cooperative, healthy appearing and no acute distress Resp Effort & Inspection: normal respiratory effort and able to speak in complete sentences Cardio Rate: regular rate Peripheral pulses: Peripheral pulses 2+ throughout GI Palpation (GI): Soft to palpation Skin Lesions: no lesions Rashes: no rashes Extrem Other: Bilateral knees normal to inspection no ecchymosis, erythema or joint effusion. Full knee ROM. NVI. Office Procedures Joint Injection/Drain Joint Injection/Drain Primary Site: right knee Secondary Site: left knee Prep: site was prepped using aseptic technique, ethochloride spray was applied and injection warnings given Injected: in the joint (Euflexxa #3) Approach Used: anterolateral Procedure: The patient tolerated the procedure well, but had some pain with the injection and there was some relief with the local anesthesia Coding 23593 - Large joint Procedure code (CPT) selection complete Assessment & Plan Assessment & Plan (1) Osteoarthritis of knees, bilateral: Code(s): M17.0 - Bilateral primary osteoarthritis of knee Qualifiers: Osteoarthritis type: unspecified Qualified Code(s): M17.0 - Bilateral primary osteoarthritis of knee Plan Ms. Salomon is an 83-year-old female who presents in the office today for a follow up of bilateral knee pain and to obtain her 3rd Euflexxa injection in a series of 3. Patient reports she is doing great after the first two injections. The patient was injection with her 3rd Euflexxa injection in the bilateral knees. The patient was explained the risk, benefits, and alternatives to receiving this injection. After receiving consent for the injection, the patient had the procedure done while in office today. The patient tolerated the procedure well with no complications. Follow up will be PRN, or sooner if needed. Patient Instructions: Scribed by Teresa Leal medical illustratorfaith luna PA-C on 01/28/2024 at 8:22 am, EST. Coding Level of Care Code Procedure Only Diagnoses Osteoarthritis of both knees, unspecified osteoarthritis type M17.0 Osteoarthritis type: unspecified CPT Codes Coding - 55266 Large joint: 85653 - Large joint ([id number])
== END 2024-01-28 08:53 | disposition home or self-care (01) ==
PROVIDERS: PCP Internal Medicine; Visit Provider Physician Assistant
DX: M17.0 Bilateral primary osteoarthritis of knee (principal)
CPT/HCPCS: 20610

== ENCOUNTER → 2024-01-28 08:20 | Outpatient (BNVA) | payer MEDICARE, SELFPAY | PROVIDERS: PCP Internal Medicine; Visit Provider Physician Assistant | DX: M17.0 Bilateral primary osteoarthritis of knee (principal) | CPT/HCPCS: 20610; J7323 ==

== ENCOUNTER 2024-03-27 12:37 | Outpatient (AMB) | payer MEDICARE, SELFPAY ==
--- NOTE | 2024-03-27 12:38 | A.OFFVIS_ITS ---
Intake Visit Reasons: ov- b/l knee, last cortisone injection 09/17/23 Intake Note: Ana is a 83 year old female who presents today for a cortisone injection for both of her knees, last gel injections 01/28/24. Patient reports that her gel injections gave her some relief until she ended up falling in February. SHe states she would like a cortisone injection in both knees today. Allergies Iodinated Contrast Media [IV CONTRAST] Allergy (Intermediate, Verified 03/27/24 12:38) itching isopropyl alcohol [ISOPROPYL ALCOHOL] Allergy (Intermediate, Verified 03/27/24 12:38) RASH/HIVES latex [LATEX] Allergy (Intermediate, Verified 03/27/24 12:38) HIVES,RASH,ITCHY nitrofurantoin [From MACRODANTIN] Allergy (Intermediate, Verified 03/27/24 12:38) RASH Penicillins [PENICILLINS] Allergy (Intermediate, Verified 03/27/24 12:38) HIVES phenazopyridine [From PYRIDIUM] Allergy (Intermediate, Verified 03/27/24 12:38) hives vancomycin Allergy (Verified 03/27/24 12:38) Itching ethanol Allergy (Intermediate, Uncoded 03/27/24 12:38) rash sulfa drugs Allergy (Intermediate, Uncoded 03/27/24 12:38) rash HPI HPI ov- b/l knee, last cortisone injection 09/17/23: Details: 83-year-old female who presents in the office today for a follow up of bilateral knee pain. I last saw the patient in the office on 01/28/2024 when she was given her third Euflexxa injection in the bilateral knees. Patient has her last cortisone injections in the bilateral knees on 09/17/2023. While in the office today the patient reports her Euflexxa injections gave her some relief until she fell in 02/2024. She would like to have repeat cortisone injections in the bilateral knees. [facility] Medical History COVID-19 vaccine series completed Breast cancer HX: breast cancer Hypothyroid GERD (gastroesophageal reflux disease) Depression Vertigo Surgical History S/P mastectomy, bilateral History of surgery H/O colonoscopy History of lumpectomy of right breast (03/2018) History of tooth extraction History of laparoscopic cholecystectomy History of tonsillectomy and adenoidectomy History of biopsy Family History Father No problems noted. Mother No problems noted. Sister Cancer of kidney Uterine cancer Social History Household Members: None Housing: House Are you a primary rn urgent care to a significant other at home: No Do you presently have visiting nurse or other home services: No Alcohol intake: never Comment: uses cane if vertigo acts up Patient Tobacco Use Status: Former Tobacco user Tobacco use type: Cigarette Years Smoked: 20 years service: No Current occupational status: retired Gender identity: Female Review of Systems Const All systems reviewed & are unremarkable except as noted in HPI and below Physical Exam Const General: cooperative, healthy appearing and no acute distress Resp Effort & Inspection: normal respiratory effort and able to speak in complete sentences Cardio Rate: regular rate Peripheral pulses: Peripheral pulses 2+ throughout GI Palpation (GI): Soft to palpation Skin Lesions: no lesions Rashes: no rashes Extrem Other: Bilateral knees normal to inspection no ecchymosis, erythema or joint effusion. Full knee ROM. NVI. Office Procedures Joint Injection/Drain Joint Injection/Drain Primary Site: right knee Secondary Site: left knee Prep: site was prepped using aseptic technique, site was prepped using sterile technique and ethochloride spray was applied Injected: 80 mg of, DepoMedrol, with 8 mL of (2% plain lido ) and in the joint Approach Used: anterolateral Procedure: The patient tolerated the procedure well, but had some pain with the injection and there was some relief with the local anesthesia Coding 68774 - Large joint Procedure code (CPT) selection complete Assessment & Plan Assessment & Plan (1) Osteoarthritis of knees, bilateral: Code(s): M17.0 - Bilateral primary osteoarthritis of knee Category: Medical Qualifiers: Osteoarthritis type: unspecified Qualified Code(s): M17.0 - Bilateral primary osteoarthritis of knee Plan Ms. Salomon is an 83-year-old female who presents in the office today for a follow up of bilateral knee pain. I last saw the patient in the office on 01/28/2024 when she was given her third Euflexxa injection in the bilateral knees. Patient has her last cortisone injections in the bilateral knees on 09/17/2023. While in the office today the patient reports her Euflexxa injections gave her some relief until she fell in 02/2024. She would like to have repeat cortisone injections in the bilateral knees. The patient was offered a cortisone injection in the bilateral knees with 80 mg of DepoMedrol. The patient was explained the risk, benefits, and alternatives to receiving this injection. After receiving consent for the injection, the patient had the procedure done while in the office today. The patient tolerated the procedure well with no complications. Follow up will be PRN, or sooner if needed. Patient Instructions: Scribed by Teresa Leal family practice medical doctor, for Gricelda Lyons PA-C on 03/27/2024 at 12:38 pm, EST. Coding Level of Care Code Est Pt Level 3 (70902) Diagnoses Osteoarthritis of both knees, unspecified osteoarthritis type M17.0 Osteoarthritis type: unspecified CPT Codes Coding - 58752 Large joint: 88271 - Large joint ([id number])
== END 2024-03-27 13:17 | disposition home or self-care (01) ==
PROVIDERS: PCP Internal Medicine; Visit Provider Physician Assistant
DX: M17.0 Bilateral primary osteoarthritis of knee (principal)
CPT/HCPCS: 20610; 99213

== ENCOUNTER → 2024-03-27 12:37 | Outpatient (BNVA) | payer MEDICARE, SELFPAY | PROVIDERS: PCP Internal Medicine; Visit Provider Physician Assistant | DX: M17.0 Bilateral primary osteoarthritis of knee (principal) | CPT/HCPCS: 20610; 99212; J1010 ==

== ENCOUNTER 2024-08-03 09:40 | Outpatient (AMB) | payer MEDICARE, SELFPAY ==
--- NOTE | 2024-08-03 09:44 | A.OFFVIS_ITS ---
Intake Visit Reasons: Bilateral Euflexxa Knee Inj #1 Intake Note: Ana is a 83 year old female who presents today for her bilateral euflexxa gel injections, last cortisone injections 03/27/24. Patient reports her last gel injections gave her relief. Allergies Iodinated Contrast Media [IV CONTRAST] Allergy (Intermediate, Verified 03/27/24 12:38) itching isopropyl alcohol [ISOPROPYL ALCOHOL] Allergy (Intermediate, Verified 03/27/24 12:38) RASH/HIVES latex [LATEX] Allergy (Intermediate, Verified 03/27/24 12:38) HIVES,RASH,ITCHY nitrofurantoin [From MACRODANTIN] Allergy (Intermediate, Verified 03/27/24 12:38) RASH Penicillins [PENICILLINS] Allergy (Intermediate, Verified 03/27/24 12:38) HIVES phenazopyridine [From PYRIDIUM] Allergy (Intermediate, Verified 03/27/24 12:38) hives vancomycin Allergy (Verified 03/27/24 12:38) Itching ethanol Allergy (Intermediate, Uncoded 03/27/24 12:38) rash sulfa drugs Allergy (Intermediate, Uncoded 03/27/24 12:38) rash HPI HPI Bilateral Euflexxa Knee Inj #1: Details: 84-year-old female who presents in the office today for a follow-up of bilateral knee osteoarthritis and to obtain her first Euflexxa injection in a series of 3. I last saw the patient in the office on 03/27/24 when she was given a cortisone injection in the bilateral knees. The patient previously received her Euflexxa injection in the series of 3, which provided her some relief until she had a fall in 03/10. While in the office today, the patient is interested in having her first Euflexxa injection today. She mentions her last Euflexxa injection provided her relief. [facility] Medical History COVID-19 vaccine series completed Breast cancer HX: breast cancer Hypothyroid GERD (gastroesophageal reflux disease) Depression Vertigo Surgical History S/P mastectomy, bilateral History of surgery H/O colonoscopy History of lumpectomy of right breast (03/2018) History of tooth extraction History of laparoscopic cholecystectomy History of tonsillectomy and adenoidectomy History of biopsy Family History Father No problems noted. Mother No problems noted. Sister Cancer of kidney Uterine cancer Social History Household Members: None Housing: House Are you a primary healthcare consulting manager to a significant other at home: No Do you presently have visiting nurse or other home services: No Alcohol intake: never Comment: uses cane if vertigo acts up Patient Tobacco Use Status: Former Tobacco user Tobacco use type: Cigarette Years Smoked: 20 years service: No Current occupational status: retired Gender identity: Female Review of Systems Const All systems reviewed & are unremarkable except as noted in HPI and below Physical Exam Const General: cooperative, healthy appearing and no acute distress Resp Effort & Inspection: normal respiratory effort and able to speak in complete sentences Cardio Rate: regular rate Peripheral pulses: Peripheral pulses 2+ throughout GI Palpation (GI): Soft to palpation Skin Lesions: no lesions Rashes: no rashes Extrem Other: Bilateral knees normal to inspection no ecchymosis, erythema or joint effusion. Full knee ROM. NVI. Office Procedures Joint Injection/Aspiration Joint Injection/Aspiration Primary Site: right knee Secondary Site: left knee Prep: site was prepped using aseptic technique, ethochloride spray was applied and injection warnings given Injected: in the joint (Euflexxa #1) Approach Used: anterolateral Procedure: The patient tolerated the procedure well, but had some pain with the injection and there was some relief with the local anesthesia Coding 32363 - Large joint Procedure code (CPT) selection complete Assessment & Plan Assessment & Plan (1) Osteoarthritis of knees, bilateral: Code(s): M17.0 - Bilateral primary osteoarthritis of knee Category: Medical Qualifiers: Osteoarthritis type: unspecified Qualified Code(s): M17.0 - Bilateral primary osteoarthritis of knee Plan Ms. Salomon is a 84-year-old female who presents in the office today for a follow- up of bilateral knee osteoarthritis and to obtain her first Euflexxa injection in a series of 3. I last saw the patient in the office on 03/27/24 when she was given a cortisone injection in the bilateral knees. The patient previously received her Euflexxa injection in the series of 3, which provided her some relief until she had a fall in 03/10. While in the office today, the patient is interested in having her Euflexxa injection #1 today. She mentions her last Euflexxa injection provided her relief. The patient was injected with her first Euflexxa injection in the bilateral knees. The patient was explained the risks, benefits, and alternative to receiving this injection. After receiving consent for the injection, the patient had the procedure done while in the office today. The patient tolerated the procedure well with no complications. Follow-up will be in 1 week for the second Euflexxa injection, or sooner if needed. Patient Instructions: Scribed by Pamela Padilla medical billing assistant, for Gricelda Lyons PA-C on 08/03/24 at 9:55 am EST. Coding Level of Care Code Procedure Only Diagnoses Osteoarthritis of both knees, unspecified osteoarthritis type M17.0 Osteoarthritis type: unspecified CPT Codes Coding - 82732 Large joint: 54522 - Large joint ([id number])
== END 2024-08-03 10:09 | disposition home or self-care (01) ==
PROVIDERS: PCP Internal Medicine; Visit Provider Physician Assistant
DX: M17.0 Bilateral primary osteoarthritis of knee (principal)
CPT/HCPCS: 20610

== ENCOUNTER → 2024-08-03 09:40 | Outpatient (BNVA) | payer MEDICARE, SELFPAY | PROVIDERS: PCP Internal Medicine; Visit Provider Physician Assistant | DX: M17.0 Bilateral primary osteoarthritis of knee (principal) | CPT/HCPCS: 20610; J7323 ==

== ENCOUNTER 2024-08-10 09:48 | Outpatient (AMB) | payer MEDICARE, SELFPAY ==
--- NOTE | 2024-08-10 09:57 | A.OFFVIS_ITS ---
Vital Signs 08/10/24 10:00 Height 5 ft 3 in Weight 177 lb BMI 31.4 Intake Visit Reasons: Bilateral Euflexxa Knee Inj #2 Intake Note: Ana is a 83 year old female who presents today for her bilateral euflexxa gel injections #2. Allergies Iodinated Contrast Media [IV CONTRAST] Allergy (Intermediate, Verified 08/10/24 10:00) itching isopropyl alcohol [ISOPROPYL ALCOHOL] Allergy (Intermediate, Verified 08/10/24 10:00) RASH/HIVES latex [LATEX] Allergy (Intermediate, Verified 08/10/24 10:00) HIVES,RASH,ITCHY nitrofurantoin [From MACRODANTIN] Allergy (Intermediate, Verified 08/10/24 10:00) RASH Penicillins [PENICILLINS] Allergy (Intermediate, Verified 08/10/24 10:00) HIVES phenazopyridine [From PYRIDIUM] Allergy (Intermediate, Verified 08/10/24 10:00) hives vancomycin Allergy (Verified 08/10/24 10:00) Itching ethanol Allergy (Intermediate, Uncoded 08/10/24 10:00) rash sulfa drugs Allergy (Intermediate, Uncoded 08/10/24 10:00) rash HPI HPI Bilateral Euflexxa Knee Inj #2: Details: 84-year-old female who presents in the office today for a follow up of bilateral knee osteoarthritis and to obtain her second Euflexxa injection in a series of 3. I last saw the patient in the office on 08/03/24 when she was given her first Euflexxa injection in the bilateral knees. While in the office today, the patient is interested in having her second Euflexxa injection in the bilateral knees today. [facility] Medical History COVID-19 vaccine series completed Breast cancer HX: breast cancer Hypothyroid GERD (gastroesophageal reflux disease) Depression Vertigo Surgical History S/P mastectomy, bilateral History of surgery H/O colonoscopy History of lumpectomy of right breast (03/2018) History of tooth extraction History of laparoscopic cholecystectomy History of tonsillectomy and adenoidectomy History of biopsy Family History Father No problems noted. Mother No problems noted. Sister Cancer of kidney Uterine cancer Social History Household Members: None Housing: House Are you a primary lead caregiver to a significant other at home: No Do you presently have visiting nurse or other home services: No Alcohol intake: never Comment: uses cane if vertigo acts up Patient Tobacco Use Status: Former Tobacco user Tobacco use type: Cigarette Years Smoked: 20 years service: No Current occupational status: retired Gender identity: Female Review of Systems Const All systems reviewed & are unremarkable except as noted in HPI and below Physical Exam Vital Signs: BMI result Body Mass Index 31.4 Const General: cooperative, healthy appearing and no acute distress Resp Effort & Inspection: normal respiratory effort and able to speak in complete sentences Cardio Rate: regular rate Peripheral pulses: Peripheral pulses 2+ throughout GI Palpation (GI): Soft to palpation Skin Lesions: no lesions Rashes: no rashes Extrem Other: Bilateral knees normal to inspection no ecchymosis, erythema or joint effusion. Full knee ROM. NVI. Office Procedures Joint Injection/Aspiration Joint Injection/Aspiration Primary Site: right knee Secondary Site: left knee Prep: site was prepped using aseptic technique, ethochloride spray was applied and injection warnings given Injected: in the joint and other (Eufelxxa #2) Approach Used: anterolateral Procedure: The patient tolerated the procedure well, but had some pain with the injection and there was some relief with the local anesthesia Coding 56522 - Large joint Procedure code (CPT) selection complete Assessment & Plan Assessment & Plan (1) Osteoarthritis of knees, bilateral: Code(s): M17.0 - Bilateral primary osteoarthritis of knee Category: Medical Qualifiers: Osteoarthritis type: unspecified Qualified Code(s): M17.0 - Bilateral primary osteoarthritis of knee Plan Ms Salomon is an 84-year-old female who presents in the office today for a follow up of bilateral knee osteoarthritis and to obtain her second Euflexxa injection in a series of 3. I last saw the patient in the office on 08/03/24 when she was given her first Euflexxa injection in the bilateral knees. While in the office today, the patient is interested in having her second Euflexxa injection in the bilateral knees today. The patient was injected with her second Euflexxa injection in the bilateral knees . The patient was explained the risks, benefits, and alternatives to receiving this injection. After receiving consent for the injection, the patient had the procedure done while in the office today. The patient tolerated the procedure well with no complications. Follow up will be in 1 week for the 3rd Euflexxa injection, or sooner if needed. Patient Instructions: Scribed by Pamela Padilla medical services manager, for Gricelda Lyosn PA-C on 08/10/24 at 10:15 am EST. Coding Level of Care Code Procedure Only Diagnoses Osteoarthritis of both knees, unspecified osteoarthritis type M17.0 Osteoarthritis type: unspecified CPT Codes Coding - 46782 Large joint: 65453 - Large joint ([id number])
[2024-08-10 10:00] VITALS: BMI 31.4
== END 2024-08-10 10:35 | disposition home or self-care (01) ==
PROVIDERS: PCP Internal Medicine; Visit Provider Physician Assistant
DX: M17.0 Bilateral primary osteoarthritis of knee (principal)
CPT/HCPCS: 20610

== ENCOUNTER → 2024-08-10 09:48 | Outpatient (BNVA) | payer MEDICARE, SELFPAY | PROVIDERS: PCP Internal Medicine; Visit Provider Physician Assistant | DX: M17.0 Bilateral primary osteoarthritis of knee (principal) | CPT/HCPCS: 20610; J7323 ==

== ENCOUNTER 2024-08-17 09:35 | Outpatient (AMB) | payer MEDICARE, SELFPAY ==
--- NOTE | 2024-08-17 09:37 | MHC.OFFVIS ---
Intake Visit Reasons: Bilateral Euflexxa Knee Inj #3 Intake Note: Ana is a 83 year old female who presents today for her bilateral euflexxa gel injections #3. Patient reports she has been feeling relief just yet, since she has been a bit more active. Allergies Iodinated Contrast Media [IV CONTRAST] Allergy (Intermediate, Verified 08/10/24 10:00) itching isopropyl alcohol [ISOPROPYL ALCOHOL] Allergy (Intermediate, Verified 08/10/24 10:00) RASH/HIVES latex [LATEX] Allergy (Intermediate, Verified 08/10/24 10:00) HIVES,RASH,ITCHY nitrofurantoin [From MACRODANTIN] Allergy (Intermediate, Verified 08/10/24 10:00) RASH Penicillins [PENICILLINS] Allergy (Intermediate, Verified 08/10/24 10:00) HIVES phenazopyridine [From PYRIDIUM] Allergy (Intermediate, Verified 08/10/24 10:00) hives vancomycin Allergy (Verified 08/10/24 10:00) Itching ethanol Allergy (Intermediate, Uncoded 08/10/24 10:00) rash sulfa drugs Allergy (Intermediate, Uncoded 08/10/24 10:00) rash HPI HPI Bilateral Euflexxa Knee Inj #3: Details: 84-year-old female who presents in the office today for a follow up of bilateral knee pain and to obtain her third Euflexxa injection in a series of 3. I last saw the patient in the office on 08/10/24 when she was given her second Euflexxa injection in the bilateral knees. While in the office today, the patient is interested in having her third Euflexxa injection in the bilateral knees today. She reports having noticed some pain relief in the bilateral knees, and she has been active. [facility] Medical History COVID-19 vaccine series completed Breast cancer HX: breast cancer Hypothyroid GERD (gastroesophageal reflux disease) Depression Vertigo Surgical History S/P mastectomy, bilateral History of surgery H/O colonoscopy History of lumpectomy of right breast (03/2018) History of tooth extraction History of laparoscopic cholecystectomy History of tonsillectomy and adenoidectomy History of biopsy Family History Father No problems noted. Mother No problems noted. Sister Cancer of kidney Uterine cancer Social History Household Members: None Housing: House Are you a primary healthcare administration intern to a significant other at home: No Do you presently have visiting nurse or other home services: No Alcohol intake: never Comment: uses cane if vertigo acts up Patient Tobacco Use Status: Former Tobacco user Tobacco use type: Cigarette Years Smoked: 20 years service: No Current occupational status: retired Gender identity: Female Review of Systems Const All systems reviewed & are unremarkable except as noted in HPI and below Physical Exam Const General: cooperative, healthy appearing and no acute distress Resp Effort & Inspection: normal respiratory effort and able to speak in complete sentences Cardio Rate: regular rate Peripheral pulses: Peripheral pulses 2+ throughout GI Palpation (GI): Soft to palpation Skin Lesions: no lesions Rashes: no rashes Extrem Other: Bilateral knees normal to inspection no ecchymosis, erythema or joint effusion. Full knee ROM. NVI. Office Procedures AMB Joint Injection/Aspiration Joint Injection/Aspiration Primary Site: right knee Secondary Site: left knee Prep: site was prepped using aseptic technique, ethochloride spray was applied and injection warnings given Injected: other (Euflexxa #3) Approach Used: anterolateral Procedure: The patient tolerated the procedure well, but had some pain with the injection and there was some relief with the local anesthesia Coding 82933 - Large joint Procedure code (CPT) selection complete Assessment & Plan Assessment & Plan (1) Osteoarthritis of knees, bilateral: Code(s): M17.0 - Bilateral primary osteoarthritis of knee Category: Medical Qualifiers: Osteoarthritis type: unspecified Qualified Code(s): M17.0 - Bilateral primary osteoarthritis of knee Plan Ms. Salomon is a 84-year-old female who presents in the office today for a follow up of bilateral knee pain and to obtain her third Euflexxa injection in a series of 3. I last saw the patient in the office on 08/10/24 when she was given her second Euflexxa injection in the bilateral knees. While in the office today, the patient is interested in having her third Euflexxa injection in the bilateral knees today. She reports having noticed some pain relief in the bilateral knees and she has been active. The patient was injected with her third Euflexxa injection in the bilateral knees . The patient was explained the risks, benefits, and alternatives to receiving this injection. After receiving consent for the injection, the patient had the procedure done while in the office today. The patient tolerated the procedure well with no complications. Follow-up will be PRN, or sooner if needed. Patient Instructions: Scribed by Pamela Padilla biomedical instrument technician, for Gricelda Lyons PA-C on 08/17/24 at 9:57 am EST. Coding Level of Care Code Procedure Only Diagnoses Osteoarthritis of both knees, unspecified osteoarthritis type M17.0 Osteoarthritis type: unspecified CPT Codes Coding - 06869 Large joint: 06823 - Large joint ([id number])
== END 2024-08-17 09:54 | disposition home or self-care (01) ==
LOC: HO.HOS 09:36
PROVIDERS: PCP Internal Medicine; Visit Provider Physician Assistant
DX: M17.0 Bilateral primary osteoarthritis of knee (principal)
CPT/HCPCS: 20610

== ENCOUNTER → 2024-08-17 09:35 | Outpatient (BNVA) | payer MEDICARE, SELFPAY | PROVIDERS: PCP Internal Medicine; Visit Provider Physician Assistant | DX: M17.0 Bilateral primary osteoarthritis of knee (principal) | CPT/HCPCS: 20610; J7323 ==

== ENCOUNTER 2024-11-28 09:25 | Outpatient (AMB) | payer MEDICARE, SELFPAY ==
--- NOTE | 2024-11-28 14:39 | MHC.OFFVIS ---
Intake Visit Reasons: B/L knee cortisone injection Intake Note: Ms. Salomon is an 84-year-old female who presents to the office for repeat bilateral knee cortisone injection. Allergies Iodinated Contrast Media [IV CONTRAST] Allergy (Intermediate, Verified 08/10/24 10:00) itching isopropyl alcohol [ISOPROPYL ALCOHOL] Allergy (Intermediate, Verified 08/10/24 10:00) RASH/HIVES latex [LATEX] Allergy (Intermediate, Verified 08/10/24 10:00) HIVES,RASH,ITCHY nitrofurantoin [From MACRODANTIN] Allergy (Intermediate, Verified 08/10/24 10:00) RASH Penicillins [PENICILLINS] Allergy (Intermediate, Verified 08/10/24 10:00) HIVES phenazopyridine [From PYRIDIUM] Allergy (Intermediate, Verified 08/10/24 10:00) hives vancomycin Allergy (Verified 08/10/24 10:00) Itching ethanol Allergy (Intermediate, Uncoded 08/10/24 10:00) rash sulfa drugs Allergy (Intermediate, Uncoded 08/10/24 10:00) rash HPI HPI B/L knee cortisone injection: Details: Ms. Salomon is an 84-year-old female who presents to the office today for repeat bilateral knee cortisone injections. [facility] Medical History COVID-19 vaccine series completed Breast cancer HX: breast cancer Hypothyroid GERD (gastroesophageal reflux disease) Depression Vertigo Surgical History S/P mastectomy, bilateral History of surgery H/O colonoscopy History of lumpectomy of right breast (03/2018) History of tooth extraction History of laparoscopic cholecystectomy History of tonsillectomy and adenoidectomy History of biopsy Family History Father No problems noted. Mother No problems noted. Sister Cancer of kidney Uterine cancer Social History Household Members: None Housing: House Are you a primary career advisor to a significant other at home: No Do you presently have visiting nurse or other home services: No Alcohol intake: never Comment: uses cane if vertigo acts up Patient Tobacco Use Status: Former Tobacco user Tobacco use type: Cigarette Years Smoked: 20 years service: No Current occupational status: retired Gender identity: Female Review of Systems Const All systems reviewed & are unremarkable except as noted in HPI and below Physical Exam Const General: cooperative, healthy appearing and no acute distress Resp Effort & Inspection: normal respiratory effort and able to speak in complete sentences Cardio Rate: regular rate Peripheral pulses: Peripheral pulses 2+ throughout GI Palpation (GI): Soft to palpation Skin Lesions: no lesions Rashes: no rashes Extrem Other: Bilateral knees normal to inspection no ecchymosis, erythema or joint effusion. Full knee ROM. NVI. Office Procedures AMB Joint Injection/Aspiration Joint Injection/Aspiration Primary Site: right knee Secondary Site: left knee Prep: site was prepped using aseptic technique, ethochloride spray was applied and injection warnings given Injected: 80 mg of, DepoMedrol, with 8 mL of (2% plain lidocaine) and in the joint Approach Used: anterolateral Procedure: The patient tolerated the procedure well, but had some pain with the injection and there was some relief with the local anesthesia Coding - Large joint Procedure code (CPT) selection complete Assessment & Plan Assessment & Plan (1) Osteoarthritis of knees, bilateral: Code(s): M17.0 - Bilateral primary osteoarthritis of knee Category: Medical Qualifiers: Osteoarthritis type: unspecified Qualified Code(s): M17.0 - Bilateral primary osteoarthritis of knee Plan Ms. Salomon is an 84-year-old female who presents to the office today for repeat bilateral knee injections. The patient was offered a cortisone injection in bilateral knees with 80 mg of DepoMedrol. The patient was explained the risks, benefits, and alternatives to receiving this injection. After receiving consent for the injection, the patient had the procedure done while in the office today. The patient tolerated the procedure well with no complications. Follow-up will be p.r.n., or sooner if needed. Coding Level of Care Code Est Pt Level 3 (85127) Diagnoses Osteoarthritis of both knees, unspecified osteoarthritis type M17.0 Osteoarthritis type: unspecified CPT Codes Coding - 62162 Large joint: 15299 - Large joint ([id number])
== END 2024-11-28 11:14 | disposition home or self-care (01) ==
PROVIDERS: PCP Internal Medicine; Visit Provider Physician Assistant
DX: M17.0 Bilateral primary osteoarthritis of knee (principal)
CPT/HCPCS: 20610; 99213

== ENCOUNTER → 2024-11-28 09:25 | Outpatient (BNVA) | payer MEDICARE, SELFPAY | PROVIDERS: PCP Internal Medicine; Visit Provider Physician Assistant | DX: M17.0 Bilateral primary osteoarthritis of knee (principal) | CPT/HCPCS: 20610; 99212; J1010; J2003 ==

== ENCOUNTER 2025-02-15 09:03 | Outpatient (AMB) | payer MEDICARE, SELFPAY ==
--- NOTE | 2025-02-15 09:09 | MHC.OFFVIS ---
Intake Visit Reasons: B/L Knee Euflexxa Gel Injections #1 Intake Note: Ana is an 84 year old female who presents today for bilateral knee Euflexxa injections #1. Allergies Iodinated Contrast Media [IV CONTRAST] Allergy (Intermediate, Verified 02/15/25 09:10) itching isopropyl alcohol [ISOPROPYL ALCOHOL] Allergy (Intermediate, Verified 02/15/25 09:10) RASH/HIVES latex [LATEX] Allergy (Intermediate, Verified 02/15/25 09:10) HIVES,RASH,ITCHY nitrofurantoin [From MACRODANTIN] Allergy (Intermediate, Verified 02/15/25 09:10) RASH Penicillins [PENICILLINS] Allergy (Intermediate, Verified 02/15/25 09:10) HIVES phenazopyridine [From PYRIDIUM] Allergy (Intermediate, Verified 02/15/25 09:10) hives vancomycin Allergy (Verified 02/15/25 09:10) Itching ethanol Allergy (Intermediate, Uncoded 08/10/24 10:00) rash sulfa drugs Allergy (Intermediate, Uncoded 08/10/24 10:00) rash HPI HPI B/L Knee Euflexxa Gel Injections #1: Details: Ms. Salomon is an 84-year-old female who presents to the office today for bilateral knee Euflexxa injections #1. [facility] Medical History COVID-19 vaccine series completed Breast cancer HX: breast cancer Hypothyroid GERD (gastroesophageal reflux disease) Depression Vertigo Surgical History S/P mastectomy, bilateral History of surgery H/O colonoscopy History of lumpectomy of right breast (03/2018) History of tooth extraction History of laparoscopic cholecystectomy History of tonsillectomy and adenoidectomy History of biopsy Family History Father No problems noted. Mother No problems noted. Sister Cancer of kidney Uterine cancer Social History Household Members: None Housing: House Are you a primary anesthesiologist and critical care to a significant other at home: No Do you presently have visiting nurse or other home services: No Alcohol intake: never Comment: uses cane if vertigo acts up Patient Tobacco Use Status: Former Tobacco user Tobacco use type: Cigarette Years Smoked: 20 years service: No Current occupational status: retired Gender identity: Female Review of Systems Const All systems reviewed & are unremarkable except as noted in HPI and below Physical Exam Const General: cooperative, healthy appearing and no acute distress Resp Effort & Inspection: normal respiratory effort and able to speak in complete sentences Skin Lesions: no lesions Rashes: no rashes Extrem Other: Bilateral knees normal to inspection no ecchymosis, erythema or joint effusion. Full knee ROM. NVI. Office Procedures AMB Joint Injection/Aspiration Joint Injection/Aspiration Primary Site: right knee Secondary Site: left knee Prep: site was prepped using aseptic technique, ethochloride spray was applied and injection warnings given Injected: other (Euflexxa #1) Approach Used: anterolateral Procedure: The patient tolerated the procedure well, but had some pain with the injection and there was some relief with the local anesthesia Coding 52903 - Bilateral Large Joint Procedure code (CPT) selection complete Assessment & Plan Assessment & Plan (1) Osteoarthritis of knees, bilateral: Code(s): M17.0 - Bilateral primary osteoarthritis of knee Category: Medical Qualifiers: Osteoarthritis type: unspecified Qualified Code(s): M17.0 - Bilateral primary osteoarthritis of knee Plan The patient was offered Euflexxa #1 in bilateral knees while in the office today. The patient was explained the risks, benefits, and alternatives to receiving this injection. After receiving consent for the injection, the patient had the procedure done while in the office today. The patient tolerated the procedure well with no complications. Follow-up will be 1 week for Euflexxa # 2, or sooner if needed Coding Level of Care Code Procedure Only Diagnoses Osteoarthritis of both knees, unspecified osteoarthritis type M17.0 Osteoarthritis type: unspecified CPT Codes Coding - 93189 - Bilateral Large Joint: 36865 - Bilateral Large Joint ([id number])
== END 2025-02-15 09:16 | disposition home or self-care (01) ==
LOC: HO.HOS 09:04
PROVIDERS: PCP Internal Medicine; Visit Provider Physician Assistant
DX: M17.0 Bilateral primary osteoarthritis of knee (principal)
CPT/HCPCS: 20610

== ENCOUNTER → 2025-02-15 09:03 | Outpatient (BNVA) | payer MEDICARE, SELFPAY | PROVIDERS: PCP Internal Medicine; Visit Provider Physician Assistant | DX: M17.0 Bilateral primary osteoarthritis of knee (principal) | CPT/HCPCS: 20610; J7323 ==

== ENCOUNTER 2025-02-22 09:01 | Outpatient (AMB) | payer MEDICARE, SELFPAY ==
--- NOTE | 2025-02-22 09:28 | MHC.OFFVIS ---
Intake Visit Reasons: B/L Knee Euflexxa Gel Injections #2 Intake Note: Ana is an 84 year old female who presents today for bilateral knee Euflexxa injections #2. Patient reports she is doing well. Allergies Iodinated Contrast Media [IV CONTRAST] Allergy (Intermediate, Verified 02/22/25 09:29) itching isopropyl alcohol [ISOPROPYL ALCOHOL] Allergy (Intermediate, Verified 02/22/25 09:29) RASH/HIVES latex [LATEX] Allergy (Intermediate, Verified 02/22/25 09:29) HIVES,RASH,ITCHY nitrofurantoin [From MACRODANTIN] Allergy (Intermediate, Verified 02/22/25 09:29) RASH Penicillins [PENICILLINS] Allergy (Intermediate, Verified 02/22/25 09:29) HIVES phenazopyridine [From PYRIDIUM] Allergy (Intermediate, Verified 02/22/25 09:29) hives vancomycin Allergy (Verified 02/22/25 09:29) Itching ethanol Allergy (Intermediate, Uncoded 08/10/24 10:00) rash sulfa drugs Allergy (Intermediate, Uncoded 08/10/24 10:00) rash HPI HPI B/L Knee Euflexxa Gel Injections #2: Details: Ms. Salomon is an 84-year-old female who presents to the office today for bilateral knee Euflexxa injections #2. [facility] Medical History COVID-19 vaccine series completed Breast cancer HX: breast cancer Hypothyroid GERD (gastroesophageal reflux disease) Depression Vertigo Surgical History S/P mastectomy, bilateral History of surgery H/O colonoscopy History of lumpectomy of right breast (03/2018) History of tooth extraction History of laparoscopic cholecystectomy History of tonsillectomy and adenoidectomy History of biopsy Family History Father No problems noted. Mother No problems noted. Sister Cancer of kidney Uterine cancer Social History Household Members: None Housing: House Are you a primary senior care assistant to a significant other at home: No Do you presently have visiting nurse or other home services: No Alcohol intake: never Comment: uses cane if vertigo acts up Patient Tobacco Use Status: Former Tobacco user Tobacco use type: Cigarette Years Smoked: 20 years service: No Current occupational status: retired Gender identity: Female Review of Systems Const All systems reviewed & are unremarkable except as noted in HPI and below Physical Exam Const General: cooperative, healthy appearing and no acute distress Resp Effort & Inspection: normal respiratory effort and able to speak in complete sentences Skin Lesions: no lesions Rashes: no rashes Extrem Other: Bilateral knees normal to inspection no ecchymosis, erythema or joint effusion. Full knee ROM. NVI. Office Procedures AMB Joint Injection/Aspiration Joint Injection/Aspiration Primary Site: right knee Secondary Site: left knee Prep: site was prepped using aseptic technique, ethochloride spray was applied and injection warnings given Injected: in the joint (Euflexxa #2) Approach Used: anterolateral Procedure: The patient tolerated the procedure well, but had some pain with the injection and there was some relief with the local anesthesia Coding 19104 - Bilateral Large Joint Procedure code (CPT) selection complete Assessment & Plan Assessment & Plan (1) Osteoarthritis of knees, bilateral: Code(s): M17.0 - Bilateral primary osteoarthritis of knee Category: Medical Qualifiers: Osteoarthritis type: unspecified Qualified Code(s): M17.0 - Bilateral primary osteoarthritis of knee Plan The patient was offered Euflexxa #2 in bilateral knees while in the office today. The patient was explained the risks, benefits, and alternatives to receiving this injection. After receiving consent for the injection, the patient had the procedure done while in the office today. The patient tolerated the procedure well with no complications. Follow-up will be 1 week for Euflexxa #3, or sooner if needed Coding Level of Care Code Procedure Only Diagnoses Osteoarthritis of both knees, unspecified osteoarthritis type M17.0 Osteoarthritis type: unspecified CPT Codes Coding - 57087 - Bilateral Large Joint: 77100 - Bilateral Large Joint ([id number])
== END 2025-02-22 09:54 | disposition home or self-care (01) ==
PROVIDERS: PCP Internal Medicine; Visit Provider Physician Assistant
DX: M17.0 Bilateral primary osteoarthritis of knee (principal)
CPT/HCPCS: 20610

== ENCOUNTER → 2025-02-22 09:01 | Outpatient (BNVA) | payer MEDICARE, SELFPAY | PROVIDERS: PCP Internal Medicine; Visit Provider Physician Assistant | DX: M17.0 Bilateral primary osteoarthritis of knee (principal) | CPT/HCPCS: 20610; J7323 ==

== ENCOUNTER 2025-03-01 09:10 | Outpatient (AMB) | payer MEDICARE, SELFPAY ==
--- NOTE | 2025-03-01 09:20 | MHC.OFFVIS ---
Intake Visit Reasons: B/L Knee Euflexxa Gel Injections #3 Intake Note: Ana is an 84 year old female who presents today for bilateral knee Euflexxa injections #3. Patient reports she is doing well. Allergies Iodinated Contrast Media [IV CONTRAST] Allergy (Intermediate, Verified 03/01/25 09:24) itching isopropyl alcohol [ISOPROPYL ALCOHOL] Allergy (Intermediate, Verified 03/01/25 09:24) RASH/HIVES latex [LATEX] Allergy (Intermediate, Verified 03/01/25 09:24) HIVES,RASH,ITCHY nitrofurantoin [From MACRODANTIN] Allergy (Intermediate, Verified 03/01/25 09:24) RASH Penicillins [PENICILLINS] Allergy (Intermediate, Verified 03/01/25 09:24) HIVES phenazopyridine [From PYRIDIUM] Allergy (Intermediate, Verified 03/01/25 09:24) hives vancomycin Allergy (Verified 03/01/25 09:24) Itching ethanol Allergy (Intermediate, Uncoded 08/10/24 10:00) rash sulfa drugs Allergy (Intermediate, Uncoded 08/10/24 10:00) rash HPI HPI B/L Knee Euflexxa Gel Injections #3: Details: Ms. Salomon is an 84-year-old female who presents to the office today for bilateral knee Euflexxa injections #3 PFSH Medical History COVID-19 vaccine series completed Breast cancer HX: breast cancer Hypothyroid GERD (gastroesophageal reflux disease) Depression Vertigo Surgical History S/P mastectomy, bilateral History of surgery H/O colonoscopy History of lumpectomy of right breast (03/2018) History of tooth extraction History of laparoscopic cholecystectomy History of tonsillectomy and adenoidectomy History of biopsy Family History Father No problems noted. Mother No problems noted. Sister Cancer of kidney Uterine cancer Social History Household Members: None Housing: House Are you a primary team primary care physician to a significant other at home: No Do you presently have visiting nurse or other home services: No Alcohol intake: never Comment: uses cane if vertigo acts up Patient Tobacco Use Status: Former Tobacco user Tobacco use type: Cigarette Years Smoked: 20 years service: No Current occupational status: retired Gender identity: Female Review of Systems Const All systems reviewed & are unremarkable except as noted in HPI and below Physical Exam Const General: cooperative, healthy appearing and no acute distress Resp Effort & Inspection: normal respiratory effort and able to speak in complete sentences Skin Lesions: no lesions Rashes: no rashes Extrem Other: Bilateral knees normal to inspection no ecchymosis, erythema or joint effusion. Full knee ROM. NVI. Office Procedures AMB Joint Injection/Aspiration Joint Injection/Aspiration Primary Site: right knee Secondary Site: left knee Prep: site was prepped using aseptic technique, ethochloride spray was applied and injection warnings given Injected: other (Euflexxa #3) Approach Used: anterolateral Procedure: The patient tolerated the procedure well, but had some pain with the injection and there was some relief with the local anesthesia Coding 97255 - Bilateral Large Joint Procedure code (CPT) selection complete Assessment & Plan Assessment & Plan (1) Osteoarthritis of knees, bilateral: Code(s): M17.0 - Bilateral primary osteoarthritis of knee Category: Medical Qualifiers: Osteoarthritis type: unspecified Qualified Code(s): M17.0 - Bilateral primary osteoarthritis of knee Plan The patient was offered Euflexxa #3 in bilateral knees while in the office today. The patient was explained the risks, benefits, and alternatives to receiving this injection. After receiving consent for the injection, the patient had the procedure done while in the office today. The patient tolerated the procedure well with no complications. Follow-up will be p.r.n., sooner if needed Coding Level of Care Code Procedure Only Diagnoses Osteoarthritis of both knees, unspecified osteoarthritis type M17.0 Osteoarthritis type: unspecified CPT Codes Coding - 74557 - Bilateral Large Joint: 09607 - Bilateral Large Joint ([id number])
== END 2025-03-01 09:37 | disposition home or self-care (01) ==
LOC: HO.HOS 09:10
PROVIDERS: PCP Internal Medicine; Visit Provider Physician Assistant
DX: M17.0 Bilateral primary osteoarthritis of knee (principal)
CPT/HCPCS: 20610

== ENCOUNTER → 2025-03-01 09:10 | Outpatient (BNVA) | payer MEDICARE, SELFPAY | PROVIDERS: PCP Internal Medicine; Visit Provider Physician Assistant | DX: M17.0 Bilateral primary osteoarthritis of knee (principal) | CPT/HCPCS: 20610; J7323 ==

== ENCOUNTER 2025-06-05 09:05 | Outpatient (AMB) | payer MEDICARE, SELFPAY ==
--- NOTE | 2025-06-05 09:21 | A.OFFVIS_ITS ---
Intake Visit Reasons: Inj - B/L knee OA, last gel inj 03/01/25 Allergies Iodinated Contrast Media (IV CONTRAST) Allergy (Intermediate, Verified 03/01/25 09:24) itching isopropyl alcohol (ISOPROPYL ALCOHOL) Allergy (Intermediate, Verified 03/01/25 09:24) RASH/HIVES latex (LATEX) Allergy (Intermediate, Verified 03/01/25 09:24) HIVES,RASH,ITCHY nitrofurantoin (From MACRODANTIN) Allergy (Intermediate, Verified 03/01/25 09:24) RASH Penicillins (PENICILLINS) Allergy (Intermediate, Verified 03/01/25 09:24) HIVES phenazopyridine (From PYRIDIUM) Allergy (Intermediate, Verified 03/01/25 09:24) hives vancomycin Allergy (Verified 03/01/25 09:24) Itching ethanol Allergy (Intermediate, Uncoded 08/10/24 10:00) rash sulfa drugs Allergy (Intermediate, Uncoded 08/10/24 10:00) rash HPI HPI Inj - B/L knee OA, last gel inj 03/01/25: Details: Ms. Salomon is an 85-year-old female who presents to the office today with his for chronic bilateral knee pain due to osteoarthritis. Her last gel injection was on 03/01/2025. She is looking to repeat cortisone injections while in the office today. [facility] Medical History COVID-19 vaccine series completed Breast cancer HX: breast cancer Hypothyroid GERD (gastroesophageal reflux disease) Depression Vertigo Surgical History S/P mastectomy, bilateral History of surgery H/O colonoscopy History of lumpectomy of right breast (03/2018) History of tooth extraction History of laparoscopic cholecystectomy History of tonsillectomy and adenoidectomy History of biopsy Family History Father No problems noted. Mother No problems noted. Sister Cancer of kidney Uterine cancer Social History Household Members: None Housing: House Are you a primary childcare center administrator to a significant other at home: No Do you presently have visiting nurse or other home services: No Alcohol intake: never Comment: uses cane if vertigo acts up Patient Tobacco Use Status: Former Tobacco user Tobacco use type: Cigarette Years Smoked: 20 years service: No Current occupational status: retired Gender identity: Female Review of Systems Const All systems reviewed & are unremarkable except as noted in HPI and below Physical Exam Const General: cooperative, healthy appearing and no acute distress Resp Effort & Inspection: normal respiratory effort and able to speak in complete sentences Skin Lesions: no lesions Rashes: no rashes Extrem Other: Bilateral knees normal to inspection no ecchymosis, erythema or joint effusion. Full knee ROM. NVI. Office Procedures AMB Joint Injection/Aspiration Joint Injection/Aspiration Primary Site: right knee Secondary Site: left knee Prep: site was prepped using aseptic technique, ethochloride spray was applied and injection warnings given Injected: 80 mg of, DepoMedrol, with 8 mL of (2% plain lidocaine) and in the joint Approach Used: anterolateral Procedure: The patient tolerated the procedure well, but had some pain with the injection and there was some relief with the local anesthesia Coding 01565 - Bilateral Large Joint Procedure code (CPT) selection complete Assessment & Plan Assessment & Plan (1) Osteoarthritis of knees, bilateral: Code(s): M17.0 - Bilateral primary osteoarthritis of knee Category: Medical Qualifiers: Osteoarthritis type: unspecified Qualified Code(s): M17.0 - Bilateral primary osteoarthritis of knee Plan The patient was offered a cortisone injection in bilateral knees with 80 mg of DepoMedrol. The patient was explained the risks, benefits, and alternatives to receiving this injection. After receiving consent for the injection, the patient had the procedure done while in the office today. The patient tolerated the procedure well with no complications. Additionally, the patient would like to move forward with another round of gel injections. We will petition the insurance company and contact the patient once approval is obtained for appropriate scheduling. Follow-up will be pending gel approval, or sooner if needed Coding Level of Care Code Est Pt Level 3 (61472) Diagnoses Osteoarthritis of both knees, unspecified osteoarthritis type M17.0 Osteoarthritis type: unspecified CPT Codes Coding - 69812 - Bilateral Large Joint: 87010 - Bilateral Large Joint ([id number])
== END 2025-06-05 09:43 | disposition home or self-care (01) ==
LOC: HO.HOS 09:06
PROVIDERS: PCP Internal Medicine; Visit Provider Physician Assistant
DX: M17.0 Bilateral primary osteoarthritis of knee (principal)
CPT/HCPCS: 20610; 99213

== ENCOUNTER → 2025-06-05 09:05 | Outpatient (BNVA) | payer MEDICARE, SELFPAY | PROVIDERS: PCP Internal Medicine; Visit Provider Physician Assistant | DX: M17.0 Bilateral primary osteoarthritis of knee (principal) | CPT/HCPCS: 20610; 99212; J1010; J2003 ==

== ENCOUNTER 2025-09-25 08:46 | Outpatient (AMB) | payer MEDICARE, SELFPAY ==
--- NOTE | 2025-09-25 09:00 | MHC.OFFVIS ---
Intake Visit Reasons: B/L knee Euflexxa Gel Injections #1 Intake Note: Ana is a 85 year old female who presents today for her bilateral knee Euflexxa gel injections #1. Allergies Iodinated Contrast Media (IV CONTRAST) Allergy (Intermediate, Verified 09/25/25 09:00) itching isopropyl alcohol (ISOPROPYL ALCOHOL) Allergy (Intermediate, Verified 09/25/25 09:00) RASH/HIVES latex (LATEX) Allergy (Intermediate, Verified 09/25/25 09:00) HIVES,RASH,ITCHY nitrofurantoin (From MACRODANTIN) Allergy (Intermediate, Verified 09/25/25 09:00) RASH Penicillins (PENICILLINS) Allergy (Intermediate, Verified 09/25/25 09:00) HIVES phenazopyridine (From PYRIDIUM) Allergy (Intermediate, Verified 09/25/25 09:00) hives vancomycin Allergy (Verified 09/25/25 09:00) Itching ethanol Allergy (Intermediate, Uncoded 08/10/24 10:00) rash sulfa drugs Allergy (Intermediate, Uncoded 08/10/24 10:00) rash HPI HPI B/L knee Euflexxa Gel Injections #1: Details: Ms. Salomon is an 85-year-old female who presents to the office today for bilateral knee Euflexxa injections #1. [facility] Medical History COVID-19 vaccine series completed Breast cancer HX: breast cancer Hypothyroid GERD (gastroesophageal reflux disease) Depression Vertigo Surgical History S/P mastectomy, bilateral History of surgery H/O colonoscopy History of lumpectomy of right breast (03/2018) History of tooth extraction History of laparoscopic cholecystectomy History of tonsillectomy and adenoidectomy History of biopsy Family History Father No problems noted. Mother No problems noted. Sister Cancer of kidney Uterine cancer Social History Household Members: None Housing: House Are you a primary child care education coordinator to a significant other at home: No Do you presently have visiting nurse or other home services: No Alcohol intake: never Comment: uses cane if vertigo acts up Patient Tobacco Use Status: Former Tobacco user Tobacco use type: Cigarette Years Smoked: 20 years service: No Current occupational status: retired Gender identity: Female Review of Systems Const All systems reviewed & are unremarkable except as noted in HPI and below Physical Exam Const General: cooperative, healthy appearing and no acute distress Resp Effort & Inspection: normal respiratory effort and able to speak in complete sentences Skin Lesions: no lesions Rashes: no rashes Extrem Other: Bilateral knees normal to inspection no ecchymosis, erythema or joint effusion. Full knee ROM. NVI. Office Procedures AMB Joint Injection/Aspiration Joint Injection/Aspiration Primary Site: Right Knee Secondary Site: Left Knee Prep: site was prepped using aseptic technique, ethochloride spray was applied and injection warnings given Injected: Euflexxa (#1) Approach Used: anterolateral Procedure: The patient tolerated the procedure well, but had some pain with the injection and there was some relief with the local anesthesia Coding 21448 - Bilateral Large Joint Procedure code (CPT) selection complete Assessment & Plan Assessment & Plan (1) Osteoarthritis of knees, bilateral: Code(s): M17.0 - Bilateral primary osteoarthritis of knee Category: Medical Qualifiers: Osteoarthritis type: unspecified Qualified Code(s): M17.0 - Bilateral primary osteoarthritis of knee Plan The patient was offered bilateral knee Euflexxa # 1 injections. The patient was explained the risks, benefits, and alternatives to receiving this injection. After receiving consent for the injection, the patient had the procedure done while in the office today. The patient tolerated the procedure well with no complications. I reviewed with the patient that Euflexxa is a hyaluronic acid-based viscosupplement used to help improve joint lubrication and reduce pain in osteoarthritis. Potential benefits include decreased pain, improved mobility, and delayed need for more invasive interventions. Risks were discussed, including post-injection soreness, swelling, warmth, temporary increase in pain, allergic reaction, infection, bleeding, and the possibility of no clinical improvement. Rare complications such as pseudoseptic reaction were reviewed. Alternatives include continued conservative management (NSAIDs, activity modification, bracing, physical therapy, weight optimization), corticosteroid injections, other hyaluronic acid formulations, PRP or biologic treatments, and surgical options if symptoms progress. Follow-up will be in 1 week for Euflexxa #2 injections, or sooner if needed Coding Level of Care Code Procedure Only Diagnoses Osteoarthritis of both knees, unspecified osteoarthritis type M17.0 Osteoarthritis type: unspecified CPT Codes Coding - - Bilateral Large Joint: 59067 - Bilateral Large Joint ([id number])
== END 2025-09-25 09:29 | disposition home or self-care (01) ==
LOC: HO.HOS 08:46
PROVIDERS: PCP Internal Medicine; Visit Provider Physician Assistant
DX: M17.0 Bilateral primary osteoarthritis of knee (principal)
CPT/HCPCS: 20610

== ENCOUNTER → 2025-09-25 08:46 | Outpatient (BNVA) | payer MEDICARE, SELFPAY | PROVIDERS: PCP Internal Medicine; Visit Provider Physician Assistant | DX: M17.0 Bilateral primary osteoarthritis of knee (principal) | CPT/HCPCS: 20610; J7323 ==

== ENCOUNTER 2025-10-02 09:49 | Outpatient (AMB) | payer MEDICARE, SELFPAY ==
--- NOTE | 2025-10-02 10:06 | MHC.OFFVIS ---
Intake Visit Reasons: B/L knee Euflexxa Gel Injections #2 Intake Note: Ana is a 85 year old female who presents today for her B/L knee Euflexxa Gel Injections #2. Patient reports her knees are feeling better. She might have over did it when she was going up and down the stairs but her knees feel good. Allergies Iodinated Contrast Media (IV CONTRAST) Allergy (Intermediate, Verified 10/02/25 10:07) itching isopropyl alcohol (ISOPROPYL ALCOHOL) Allergy (Intermediate, Verified 10/02/25 10:07) RASH/HIVES latex (LATEX) Allergy (Intermediate, Verified 10/02/25 10:07) HIVES,RASH,ITCHY nitrofurantoin (From MACRODANTIN) Allergy (Intermediate, Verified 10/02/25 10:07) RASH Penicillins (PENICILLINS) Allergy (Intermediate, Verified 10/02/25 10:07) HIVES phenazopyridine (From PYRIDIUM) Allergy (Intermediate, Verified 10/02/25 10:07) hives vancomycin Allergy (Verified 10/02/25 10:07) Itching ethanol Allergy (Intermediate, Uncoded 08/10/24 10:00) rash sulfa drugs Allergy (Intermediate, Uncoded 08/10/24 10:00) rash HPI HPI B/L knee Euflexxa Gel Injections #2: Details: The patient is 85-year-old female who presents to the office today for bilateral knee Euflexxa injections # 2. Patient states that she has noted some relief with the 1st round of injections. [facility] Medical History COVID-19 vaccine series completed Breast cancer HX: breast cancer Hypothyroid GERD (gastroesophageal reflux disease) Depression Vertigo Surgical History S/P mastectomy, bilateral History of surgery H/O colonoscopy History of lumpectomy of right breast (03/2018) History of tooth extraction History of laparoscopic cholecystectomy History of tonsillectomy and adenoidectomy History of biopsy Family History Father No problems noted. Mother No problems noted. Sister Cancer of kidney Uterine cancer Social History Household Members: None Housing: House Are you a primary child caregiver private home to a significant other at home: No Do you presently have visiting nurse or other home services: No Alcohol intake: never Comment: uses cane if vertigo acts up Patient Tobacco Use Status: Former Tobacco user Tobacco use type: Cigarette Years Smoked: 20 years service: No Current occupational status: retired Gender identity: Female Review of Systems Const All systems reviewed & are unremarkable except as noted in HPI and below Physical Exam Const General: cooperative, healthy appearing and no acute distress Resp Effort & Inspection: normal respiratory effort and able to speak in complete sentences Skin Lesions: no lesions Rashes: no rashes Extrem Other: Bilateral knees normal to inspection no ecchymosis, erythema or joint effusion. Full knee ROM. NVI. Office Procedures AMB Joint Injection/Aspiration Joint Injection/Aspiration Primary Site: Right Knee Secondary Site: Left Knee Prep: site was prepped using aseptic technique, ethochloride spray was applied and injection warnings given Injected: Euflexxa (#2) and in the joint Approach Used: anterolateral Procedure: The patient tolerated the procedure well, but had some pain with the injection and there was some relief with the local anesthesia Coding 89423 - Bilateral Large Joint Procedure code (CPT) selection complete Assessment & Plan Assessment & Plan (1) Osteoarthritis of knees, bilateral: Code(s): M17.0 - Bilateral primary osteoarthritis of knee Category: Medical Qualifiers: Osteoarthritis type: unspecified Qualified Code(s): M17.0 - Bilateral primary osteoarthritis of knee Plan I reviewed with the patient that Euflexxa is a hyaluronic acid?based viscosupplement used to help improve joint lubrication and reduce pain in osteoarthritis. Potential benefits include decreased pain, improved mobility, and delayed need for more invasive interventions. Risks were discussed, including post-injection soreness, swelling, warmth, temporary increase in pain, allergic reaction, infection, bleeding, and the possibility of no clinical improvement. Rare complications such as pseudoseptic reaction were reviewed. Alternatives include continued conservative management (NSAIDs, activity modification, bracing, physical therapy, weight optimization), corticosteroid injections, other hyaluronic acid formulations, PRP or biologic treatments, and surgical options if symptoms progress. The patient verbalized understanding and elected to proceed. After receiving consent for the Euflexxa #2 injection in both knees, the patient had the procedure done while in the office today. The patient tolerated the procedure well with no complications. Patient will follow up in 1 week for Euflexxa # 3 in bilateral knees, sooner if needed. Coding Level of Care Code Procedure Only Diagnoses Osteoarthritis of both knees, unspecified osteoarthritis type M17.0 Osteoarthritis type: unspecified CPT Codes Coding - 86279 - Bilateral Large Joint: 97504 - Bilateral Large Joint ([id number])
== END 2025-10-02 10:18 | disposition home or self-care (01) ==
LOC: HO.HOS 09:50
PROVIDERS: PCP Internal Medicine; Visit Provider Physician Assistant
DX: M17.0 Bilateral primary osteoarthritis of knee (principal)
CPT/HCPCS: 20610

== ENCOUNTER → 2025-10-02 09:49 | Outpatient (BNVA) | payer MEDICARE, SELFPAY | PROVIDERS: PCP Internal Medicine; Visit Provider Physician Assistant | DX: M17.0 Bilateral primary osteoarthritis of knee (principal) | CPT/HCPCS: 20610; J7323 ==

== ENCOUNTER 2025-10-09 09:24 | Outpatient (AMB) | payer MEDICARE, SELFPAY ==
--- NOTE | 2025-10-09 09:34 | MHC.OFFVIS ---
Intake Visit Reasons: B/L knee Euflexxa Gel Injections #3 Intake Note: Ana is a 85 year old female who presents today for her B/L knee Euflexxa Gel Injections #3. Patient reports she is doing well, just a bit sore. Allergies Iodinated Contrast Media (IV CONTRAST) Allergy (Intermediate, Verified 10/02/25 10:07) itching isopropyl alcohol (ISOPROPYL ALCOHOL) Allergy (Intermediate, Verified 10/02/25 10:07) RASH/HIVES latex (LATEX) Allergy (Intermediate, Verified 10/02/25 10:07) HIVES,RASH,ITCHY nitrofurantoin (From MACRODANTIN) Allergy (Intermediate, Verified 10/02/25 10:07) RASH Penicillins (PENICILLINS) Allergy (Intermediate, Verified 10/02/25 10:07) HIVES phenazopyridine (From PYRIDIUM) Allergy (Intermediate, Verified 10/02/25 10:07) hives vancomycin Allergy (Verified 10/02/25 10:07) Itching ethanol Allergy (Intermediate, Uncoded 08/10/24 10:00) rash sulfa drugs Allergy (Intermediate, Uncoded 08/10/24 10:00) rash HPI HPI B/L knee Euflexxa Gel Injections #3: Details: The patient is an 85-year-old female who presents to the office today for bilateral knee Euflexxa #3 injections. [facility], LAT[facility] Medical History COVID-19 vaccine series completed Breast cancer HX: breast cancer Hypothyroid GERD (gastroesophageal reflux disease) Depression Vertigo Surgical History S/P mastectomy, bilateral History of surgery H/O colonoscopy History of lumpectomy of right breast (03/2018) History of tooth extraction History of laparoscopic cholecystectomy History of tonsillectomy and adenoidectomy History of biopsy Family History Father No problems noted. Mother No problems noted. Sister Cancer of kidney Uterine cancer Social History Household Members: None Housing: House Are you a primary resident care spec to a significant other at home: No Do you presently have visiting nurse or other home services: No Alcohol intake: never Comment: uses cane if vertigo acts up Patient Tobacco Use Status: Former Tobacco user Tobacco use type: Cigarette Years Smoked: 20 years service: No Current occupational status: retired Gender identity: Female Review of Systems Const All systems reviewed & are unremarkable except as noted in HPI and below Physical Exam Const General: cooperative, healthy appearing and no acute distress Resp Effort & Inspection: normal respiratory effort and able to speak in complete sentences Skin Lesions: no lesions Rashes: no rashes Extrem Other: Bilateral knees normal to inspection no ecchymosis, erythema or joint effusion. Full knee ROM. NVI. Psych Appearance: grossly normal Mental Status: mental status grossly normal Attitude: cooperative Office Procedures AMB Joint Injection/Aspiration Joint Injection/Aspiration Primary Site: Right Knee Secondary Site: Left Knee Prep: site was prepped using aseptic technique, ethochloride spray was applied and injection warnings given Injected: Euflexxa (#3) and in the joint Approach Used: anterolateral Procedure: The patient tolerated the procedure well, but had some pain with the injection and there was some relief with the local anesthesia Coding 70706 - Bilateral Large Joint Procedure code (CPT) selection complete Assessment & Plan Assessment & Plan (1) Osteoarthritis of knees, bilateral: Code(s): M17.0 - Bilateral primary osteoarthritis of knee Category: Medical Qualifiers: Osteoarthritis type: unspecified Qualified Code(s): M17.0 - Bilateral primary osteoarthritis of knee Plan I reviewed with the patient that Euflexxa # 3 in bilateral knees is a hyaluronic acid?based viscosupplement used to help improve joint lubrication and reduce pain in osteoarthritis. Potential benefits include decreased pain, improved mobility, and delayed need for more invasive interventions. Risks were discussed, including post-injection soreness, swelling, warmth, temporary increase in pain, allergic reaction, infection, bleeding, and the possibility of no clinical improvement. Rare complications such as pseudoseptic reaction were reviewed. Alternatives include continued conservative management (NSAIDs, activity modification, bracing, physical therapy, weight optimization), corticosteroid injections, other hyaluronic acid formulations, PRP or biologic treatments, and surgical options if symptoms progress. The patient verbalized understanding and elected to proceed. After receiving consent for the injection, the patient had the procedure done while in the office today. The patient tolerated the procedure well with no complications. Coding Level of Care Code Procedure Only Diagnoses Osteoarthritis of both knees, unspecified osteoarthritis type M17.0 Osteoarthritis type: unspecified CPT Codes Coding - - Bilateral Large Joint: - Bilateral Large Joint ([id number])
== END 2025-10-09 10:01 | disposition home or self-care (01) ==
LOC: HO.HOS 09:24
PROVIDERS: PCP Internal Medicine; Visit Provider Physician Assistant
DX: M17.0 Bilateral primary osteoarthritis of knee (principal)
CPT/HCPCS: 20610

== ENCOUNTER → 2025-10-09 09:24 | Outpatient (BNVA) | payer MEDICARE, SELFPAY | PROVIDERS: PCP Internal Medicine; Visit Provider Physician Assistant | DX: M17.0 Bilateral primary osteoarthritis of knee (principal) | CPT/HCPCS: 20610; J7323 ==